=== PATIENT | female | born 1935 | race Hispanic/Latino ===

== ENCOUNTER 2017-03-26 10:45 | Observation (INO) | payer MEDICARE, BC ==
--- NOTE | 2017-03-26 11:04 | ED PDOC ---
Arrival/HPI - General Chief Complaint: Abnormal Labs Time Seen by Provider: 03/26/17 11:01 Historian: Patient - History of Present Illness Narrative History of Present Illness (Text): 03/26/17 11:02 An 81 year old female with known thalassemia with baseline hgb of approx 8.5. 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 Patient was referred to the Emergency department after was noted to have a hgb of 6.8. Patient is to be admitted to Dr. Booth for transfusion. Patient presents to the emergency department complaining of dizziness, generalized weakness and shortness of breath. Patient reports chronic black stools. No recent syncopal episodes. Patient is not taking iron. Patient notes some nausea but denies any abdominal pain, chest pain or any other complaints at this time. Patient is a smoker. PMD: Dr. Booth Public Relations Player: Dr. Nelson Time/Duration: Other (chronic) Symptom Onset: Sudden Symptom Course: Unchanged Activities at Onset: Rest Context: Home Past Medical History - Provider Review Nursing Documentation Reviewed: Yes - Infectious Disease Hx of Infectious Diseases: None - Reproductive Menopause: Yes - Hematological/Oncological Hx Anemia: Yes - Psychiatric Hx Substance Use: No - Anesthesia Hx Anesthesia Reactions: No Family/Social History - Physician Review Nursing Documentation Reviewed: Yes Family/Social History: No Known Family HX Smoking Status: Unknown If Ever Smoked Hx Alcohol Use: No Hx Substance Use: No Allergies/Home Meds Allergies/Adverse Reactions: Allergies No Known Allergies Allergy (Verified 03/26/17 11:00) Home Medications: Home Meds Medication Instructions Recorded Confirmed No Known Home Med 03/26/17 03/26/17 Review of Systems - Physician Review All systems were reviewed & negative as marked: Yes - Review of Systems Constitutional: Other (generalized weakness) Respiratory: SOB Cardiovascular: absent: Chest Pain Gastrointestinal: Stool Changes (black stools), Nausea. absent: Abdominal Pain Neurological: Dizziness Physical Exam Vital Signs Reviewed: Yes Vital Signs Temp Pulse Resp BP Pulse Ox 03/26/17 11:15 97.5 F L 86 18 190/81 H 98 03/26/17 10:54 97.5 F L 86 16 190/81 H 98 Temperature: Afebrile Blood Pressure: Hypertensive Pulse: Regular Respiratory Rate: Normal Appearance: Positive for: Well-Appearing, Non-Toxic, Comfortable Pain Distress: None Mental Status: Positive for: Alert and Oriented X 3 - Systems Exam Head: Present: Atraumatic, Normocephalic Pupils: Present: PERRL Extroacular Muscles: Present: EOMI Conjunctiva: Present: Other (pallor) Mouth: Present: Dry Neck: Present: Normal Range of Motion Respiratory/Chest: Present: Clear to Auscultation, Good Air Exchange. No: Respiratory Distress, Accessory Muscle Use Cardiovascular: Present: Regular Rate and Rhythm, Normal S1, S2, Other (not accelerated). No: Murmurs Abdomen: Present: Normal Bowel Sounds. No: Tenderness, Distention, Peritoneal Signs, Rebound, Guarding, Mass/Organomegaly Back: Present: Normal Inspection Upper Extremity: Present: Normal Inspection, Other (strong 2+ pulses). No: Cyanosis, Edema Lower Extremity: Present: Normal Inspection, Other (strong 2+ pulses). No: Edema, Cyanosis Neurological: Present: GCS=15, CN II-XII Intact, Speech Normal Skin: Present: Dry, Normal Color, Other (pale). No: Rashes Psychiatric: Present: Alert, Oriented x 3, Normal Insight, Normal Concentration Medical Decision Making ED Course and Treatment: 03/26/17 11:40 Impression: An 81 year old female with generalized weakness, shortness of breath and dizziness. Plan: -- EKG -- chest xray -- labs -- Urinalysis -- Reassess and disposition Progress Notes: EKG: Ordered, reviewed, and independently interpreted the EKG. Rate : 74 BPM Rhythm : NSR Interpretation : occasional PACs, poor R wave progression v1-v3, no acte ST/T wave changes Comparison : No previous EKG for comparison. 03/26/17 11:[address] Booth for the second time for patient admission. 03/26/17 12:[address] Booth, who agrees for patient to be admitted. 03/26/17 12:30 Chest xray: No active pulmonary disease, as read by me. Reevaluation: I have discussed the results and plan with the patient, who expresses understanding. Patient given the opportunity to ask question, all questions were answered and there is agreement with the plan to be admitted to the hospital. - Lab Interpretations Lab Results: 03/26/17 11:30 03/26/17 11:30 Lab Results 03/26/17 12:00: Blood Type Confirm A POSITIVE 03/26/17 11:30: Blood Type A POSITIVE, Antibody Screen Negative, Crossmatch See Detail, BBK History Checked No verified bt 03/26/17 11:30: Sodium 139, Potassium 4.7, Chloride 105, Carbon Dioxide 27, Anion Gap 12, BUN 14, Creatinine 0.5 L, Est GFR ( Amer) > 60, Est GFR ( Non-Af Amer) > 60, Random Glucose 93, Calcium 9.6, Total Bilirubin 1.1, AST 38 H , ALT 41, Alkaline Phosphatase 66, Total Protein 7.4, Albumin 4.2, Globulin 3.2 , Albumin/Globulin Ratio 1.3, Amylase 75, Lipase 151 03/26/17 11:30: Urine Color Yellow, Urine Appearance Clear, Urine pH 6.0, Ur Specific [place] 1.015, Urine Protein Trace H, Urine Glucose (UA) Negative, Urine Ketones Negative, Urine Blood Negative, Urine Nitrate Negative, Urine Bilirubin Negative, Urine Urobilinogen 0.2, Ur Leukocyte Esterase Trace H, Urine RBC 0 - 2, Urine WBC 0 - 2, Ur Epithelial Cells 0 - 2 03/26/17 11:30: PT 14.5 H, INR 1.31 H, APTT 32.2 03/26/17 11:30: WBC 3.7 L, RBC 4.51, Hgb 7.3 L, Hct 26.5 L, MCV 58.8 L, MCH 16.2 L, MCHC 27.5 L, RDW 24.5 H, Plt Count 174, Gran % 45.3 L, Lymph % (Auto) 45.8 H, [place] % (Auto) 6.8 H, Eos % (Auto) 1.6, Baso % (Auto) 0.5, Gran # 1.67, Lymph # 1.7, [place] # 0.3, Eos # 0.1, Baso # 0.02 I have reviewed the lab results: Yes - RAD Interpretation Radiology Orders: 03/26/17 11:18 CHEST PORTABLE [RAD] Stat - EKG Interpretation Interpreted by ED Physician: Yes Type: 12 lead EKG - Medication Orders Current Medication Orders: Albuterol/Ipratropium (Duoneb 3 Mg/0.5 Mg (3 Ml) Ud) 3 ml IH [id number] KRISTOFER Amlodipine Besylate (Norvasc) 10 mg PO DAILY [facility] Last Admin: 03/26/17 15:26 Dose: 10 mg MAR Blood Pressure Document 03/26/17 15:26 [facility] [place] (Rec: 03/26/17 15:27 [facility] [place] [id number]) Blood Pressure Blood Pressure (100/60-150/90) 177/88 Discontinued Medications Furosemide (Lasix) 20 mg IVP ONCE ONE Stop: 03/26/17 17:01 Last Admin: 03/26/17 17:05 Dose: 20 mg MAR Blood Pressure Document 03/26/17 17:05 [facility] [place] (Rec: 03/26/17 17:05 [facility] [place] [id number]) Blood Pressure Blood Pressure (100/60-150/90) 170/84 IVP Administration Document 03/26/17 17:05 [facility] [place] (Rec: 03/26/17 17:05 [facility] [place] [id number]) Charges for Administration # of IVP Administrations 1 Pneumococcal Polyvalent Vaccine (Pneumovax 23 Vaccine) 0.5 ml IM .ONCE ONE Stop: 03/26/17 13:53 - Scribe Statement Ronda Cruz Provider Scribe Attestation: All medical record entries made by the Scribe were at my direction and personally dictated by me. I have reviewed the chart and agree that the record accurately reflects my personal performance of the history, physical exam, medical decision making, and the department course for this patient. I have also personally directed, reviewed, and agree with the discharge instructions and disposition. Disposition/Present on Arrival - Present on Arrival Any Indicators Present on Arrival: No History of DVT/PE: No History of Uncontrolled Diabetes: No Urinary Catheter: No History of Decub. Ulcer: No History Surgical Site Infection Following: None - Disposition Have Diagnosis and Disposition been Completed?: Yes Diagnosis: Anemia, Thalassemia Disposition: HOSPITALIZED Disposition Time: 12:12 Patient Plan: Observation Patient Problems: Current Active Problems Problem Status Onset Anemia Acute Thalassemia Acute Condition: FAIR
[2017-03-26 11:40] LABS: BASO # 0.02 K/mm3 (0.0-2.0); BASO % 0.5 % (0.0-3.0); EOS # 0.1 (0.0-0.7); EOS % 1.6 % (1.5-5.0); GRAN # 1.67 (1.4-6.5); GRAN % 45.3 % (50.0-68.0); HEMATOCRIT 26.5 % (36.0-48.0); LYMPH # 1.7 (1.2-3.4); LYMPH % 45.8 % (22.0-35.0); MEAN CELL VOLUME 58.8 fl (80.0-105.0); MEAN CORPUSCULAR HEMOGLOBIN 16.2 pg (25.0-35.0); MEAN CORPUSCULAR HGB CONC 27.5 g/dl (31.0-37.0); MONO # 0.3 (0.1-0.6); MONO % 6.8 % (1.0-6.0); PLATELET COUNT 174 10^3/uL (120.0-450.0); RED CELL DISTRIBUTION WIDTH 24.5 % (11.5-14.5); WHITE BLOOD COUNT 3.7 10^3/ul (4.5-11.0)
[2017-03-26 11:51] LABS: ALB/GLOB RATIO 1.3 (1.1-1.8); ALKALINE PHOSPHATASE 66 U/L (38-126); ALT/SGPT 41 U/L (7-56); AMYLASE 75 U/L (35-125); AST/SGOT 38 U/L (14-36); BILIRUBIN,TOTAL 1.1 mg/dL (0.2-1.3); BLOOD UREA NITROGEN 14 mg/dL (7-21); CALCIUM 9.6 mg/dL (8.4-10.5); CARBON DIOXIDE 27 mmol/L (21-33); CHLORIDE 105 mmol/L (98-107); GFR AFRICAN-AMERICAN > 60; GLUCOSE,RANDOM 93 mg/dL (70-110); INR 1.31 (0.93-1.08); LIPASE 151 U/L (23-300); PARTIAL THROMBOPLASTIN TIME 32.2 Seconds (25.1-36.5); TOTAL PROTEIN 7.4 g/dL (5.8-8.3)
[2017-03-26 12:02] LABS: POTASSIUM 4.7 mmol/L (3.6-5.0); SODIUM 139 mmol/L (132-148)
[2017-03-26 12:11] LABS: URINE BILIRUBIN NEGATIVE (NEGATIVE); URINE BLOOD NEGATIVE (NEGATIVE); URINE GLUCOSE (UA) NEGATIVE (NEGATIVE); URINE KETONE NEGATIVE (NEGATIVE); URINE LEUKOCYTE ESTERASE TRACE Leu/uL (NEGATIVE); URINE PROTEIN TRACE mg/dL (<30 mg/dL); URINE UROBILINOGEN 0.2 E.U./dL (<1 E.U./dL)
[2017-03-26 12:13] LABS: URINE APPEARANCE CLEAR (CLEAR); URINE COLOR YELLOW (YELLOW)
[2017-03-26 12:29] LABS: URINE EPITHELIAL CELLS 0 - 2 /hpf (0-5); URINE RBC 0 - 2 /hpf (0-2); URINE WBC 0 - 2 /hpf (0-6)
[2017-03-26 13:52] VITALS: BMI 22.8
[2017-03-26] MEDS ORDERED: Influenza Vaccine 60 mcg/0.5 mL SYR (4YR UP) IM ONE (13:52)
[2017-03-26] MEDS ORDERED: Pneumococcal 23-Valent Vaccine IM ONE (13:52)
--- NOTE | 2017-03-26 14:11 | RAD ---
HISTORY: Shortness of breath. Portable study 11:18 COMPARISON: No prior. FINDINGS: LUNGS: No active pulmonary disease. PLEURA: No significant pleural effusion identified, no pneumothorax apparent. CARDIOVASCULAR: No radiographic findings to suggest acute or significant cardiovascular disease. OSSEOUS STRUCTURES: No significant abnormalities. VISUALIZED UPPER ABDOMEN: Normal. OTHER FINDINGS: None. IMPRESSION: No active disease.
[2017-03-26] MEDS ORDERED: Barium Sulfate Susp 2.1% w/v, 2.0% w/w 450 mL Bottle PO ONE (15:21)
[2017-03-26] MEDS ORDERED: Iohexol 240 (50 ml) ONE (16:33)
--- NOTE | 2017-03-26 23:05 | CARD ---
APPROVED REPORT EKG Measurement Heart [id number] <Conclusion> Sinus rhythm with premature atrial complexes Cannot rule out Anterior infarct, age undetermined Abnormal ECG
--- NOTE | 2017-03-26 23:49 | CP.PCM.CON ---
History of Present Illness - History of Present Illness History of Present Illness: Patient is an 81 year old female seen in office yesterday. CBC showed hemoglobin of 6.8 gm/dl. She usually has Hb around 8.5 gm/dl. She has beta thalasemmia trait. She recently had EGD, colonoscopy, both negative for any source of bleeding. She has symptomatic anemia. She has shortness of breath, fatigue, day time somnolence. She is unable to perform her day to day activities because of fatigue. No dark colored stools. No bleeding from any site. Review of Systems - Constitutional Constitutional: As Per HPI, Lethargy, Malaise, Weakness - EENT Eyes: absent: As Per HPI, Blind Spots, Blurred Vision, Change in Vision, Decreased Night Vision, Diplopia, Discharge, Dry Eye, Exophthalmos, Floaters, Irritation, Itchy Eyes, Loss of Peripheral Vision, Pain, Photophobia, Requires Corrective Lenses, Sees Flashes, Spots in Vision, Tunnel Vision, Other Visual Disturbances, Loss of Vision, Other Ears: absent: As Per HPI, Decreased Hearing, Ear Discharge, Ear Pain, Tinnitus, Abnormal Hearing, Disequilibrium, Dizziness, Other Nose/Mouth/Throat: absent: As Per HPI, Epistaxis, Nasal Congestion, Nasal Discharge, Nasal Obstruction, Nasal Trauma, Nose Pain, Post Nasal Drip, Sinus Pain, Sinus Pressure, Bleeding Gums, Change in Voice, Dental Pain, Dry Mouth, Dysphagia, Halitosis, Hoarsness, Lip Swelling, Mouth Lesions, Mouth Pain, Odynophagia, Sore Throat, Throat Swelling, Tongue Swelling, Facial Pain, Neck Pain, Neck Mass, Other - Breasts Breasts: absent: As Per HPI, Change in Shape, Mass, Pain, Nipple Discharge, Nipple Inversion, Skin Changes, Swelling, Other - Cardiovascular Cardiovascular: As Per HPI, Dyspnea - Gastrointestinal Gastrointestinal: absent: As Per HPI, Abdominal Pain, Belching, Bloating, Change in Bowel Habits, Change in Stool Character, Coffee Ground Emesis, Constipation, Cramping, Diarrhea, Dyspepsia, Dysphagia, Early Satiety, Excessive Flatus, Fecal Incontinence, Heartburn, Hematemesis, Hematochezia, Loose Stools, Melena, Nausea, Odynophagia, Temesmus, Vomiting, Other - Genitourinary Genitourinary: absent: As Per HPI, Change in Urinary Stream, Difficulty Urinating, Dysuria, Flank Pain, Hematuria, Pyuria, Nocturia, Urinary Incontinence, Urinary Frequency, Urinary Hesitance, Urinary Urgency, Voiding Freq/Small Amts, Freq UTI, Hx Renal/Bladder Calculi, Hx /Renal Surgery, Bladder Distension, Other - Musculoskeletal Musculoskeletal: absent: As Per HPI, Abnormal Gait, Arthralgias, Atrophy, Back Pain, Deformity, Joint Swelling, Limited Range of Motion, Loss of Height, Muscle Cramps, Muscle Weakness, Myalgias, Neck Pain, Numbness, Radiating Pain into Limb, Stiffness, Tingling, Other - Integumentary Integumentary: absent: As Per HPI, Acne, Alopecia, Bleeding Lesions, Change in Hair, Change in Nails, Change in Pigmentation, Changing Lesions, Dry Skin, Erythema, Furuncle, Hirsutism, Lesions, New Lesions, Non-Healing Lesions, Photosensitivity, Pruritus, Rash, Skin Pain, Skin Ulcer, Sores, Striae, Swelling , Unusual Bruising, Wounds, Jaundice, Other - Neurological Neurological: absent: As Per HPI, Abnormal Gait, Abnormal Hearing, Abnormal Movements, Abnormal Speech, Behavioral Changes, Burning Sensations, Confusion, Convulsions, Disequilibrium, Dizziness, Numbness, Focal Weakness, Frequent Falls , Headaches, Lack of Coordination, Loss of Vision, Memory Loss, Paresthesias, Radicular Pain, Restless Legs, Sensory Deficit, Syncope, Tingling, Tremor, Vertigo, Weakness, Other Visual Disturbances, Other - Psychiatric Psychiatric: absent: As Per HPI, Abnormal Sleep Pattern, Anhedonia, Anxiety, Auditory Hallucinations, Behavioral Changes, Change in Appetite, Change in Libido, Confusion, Depression, Difficulty Concentrating, Hallucinations, Homicidal Ideation, Hopelessness, Irritability, Memory Loss, Mood Swings, Panic Attacks, Paranoia, Suicidal Ideation, Visual Hallucinations, Tactile Hallucinations, Other - Endocrine Endocrine: absent: As Per HPI, Change in Body Appearance, Change in Libido, Cold Intolorance, Deepening of Voice, Excessive Sweating, Fatigue, Flushing, Heat Intolorance, Increase in Ring/Shoe/Hat Size, Palpitations, Polydipsia, Polyphagia, Polyuria, Other - Hematologic/Lymphatic Hematologic: As Per HPI Past Patient History - Infectious Disease Hx of Infectious Diseases: None - Past Medical History & Family History Past Medical History?: Yes Past Family History: Reviewed and not pertinent - Past Social History Smoking Status: Unknown If Ever Smoked - NEUROLOGICAL Hx Neurological Disorder: Yes (syncope) Hx Dizziness: Yes Hx Seizures: (pt denies) Other/Comment: multiple episodes of syncope last episode about 1 yr ago, Pt stated " sometimes I feel like I'm going to pass out but I sit down and it passes." - HEENT Hx HEENT Problems: Yes (eyeglasses) Hx Cataracts: Yes (b/l sx) Hx Macular Degeneration: Yes Other/Comment: 70% vision loss left eye and 5% vision loss right eye, from macular degeneration - HEMATOLOGICAL/ONCOLOGICAL Hx Anemia: Yes - MUSCULOSKELETAL/RHEUMATOLOGICAL Hx Falls: Yes (past) Other/Comment: pt fell backwards hanging curtains in 2013 around 10am and does not remember anything woke up at 1pm walked downstairs and called her neice. went to er all tests negative as per pt - GASTROINTESTINAL Hx Gastrointestinal Disorders: Yes Other/Comment: chronic black stools +guiac for abou 6 or 8 months - PSYCHIATRIC Hx Substance Use: No - SURGICAL HISTORY Hx Surgeries: Yes (b/l cataracts) - ANESTHESIA Hx Anesthesia Reactions: No Meds Allergies/Adverse Reactions: Allergies Allergy/AdvReac Type Severity Reaction Status Date / Time No Known Allergies Allergy Verified 03/26/17 11:00 - Medications Medications: Current Medications Albuterol/Ipratropium (Duoneb 3 Mg/0.5 Mg (3 Ml) Ud) 3 ml IH [id number] [facility] Amlodipine Besylate (Norvasc) 10 mg PO DAILY [facility] Last Admin: 03/26/17 15:26 Dose: 10 mg Physical Exam - Constitutional Appears: Well, Non-toxic - Head Exam Head Exam: ATRAUMATIC, NORMAL INSPECTION, NORMOCEPHALIC - Eye Exam Eye Exam: Normal appearance Pupil Exam: NORMAL ACCOMODATION - ENT Exam ENT Exam: Mucous Membranes Moist - Neck Exam Neck exam: Positive for: Normal Inspection - Respiratory Exam Respiratory Exam: Clear to Auscultation Bilateral, NORMAL BREATHING PATTERN - Cardiovascular Exam Cardiovascular Exam: REGULAR RHYTHM, +S1, +S2 - GI/Abdominal Exam GI & Abdominal Exam: Normal Bowel Sounds, Soft - Rectal Exam Rectal Exam: NORMAL INSPECTION - Extremities Exam Extremities exam: Positive for: normal inspection - Back Exam Back exam: NORMAL INSPECTION - Neurological Exam Neurological exam: CN II-XII Intact, Normal Gait, Oriented x3 - Skin Skin Exam: Pallor, Warm Results - Vital Signs Recent Vital Signs: Last Vital Signs Temp 98.4 F 03/26/17 20:15 Pulse 68 03/26/17 20:15 Resp 16 03/26/17 20:15 BP 155/83 H 03/26/17 20:15 Pulse Ox 95 03/26/17 16:00 - Labs Result Diagrams: 03/26/17 11:30 03/26/17 11:30 Assessment & Plan - Assessment and Plan (Free Text) Assessment: 1. Severe Anemia 2. Thalasemia trait 3. Fatigue 4. Leukopenia Plan: 2 units of PRBC. Lasix 20 mg IV after first unit. Recent GI work up negative- EGD, colonoscopy. CT chest, abdomen, pelvis with PO and IV contrast to rule out occult malignancy. Leukopenia is recent. She will need bone marrow aspiration, biopsy to rule out MDS. Discussed with the patient. She agreed with the plan. Bone marrow will be done in 1-2 weeks if WC does not recover. Thank you Dr. Booth for allowing us to participate in her care. - Date & Time Date: 03/26/17 Time: 17:00
--- NOTE | 2017-03-27 01:21 | HP ---
HISTORY OF PRESENT ILLNESS: The patient is an 81-year-old, known to me from office practice, was seen by Dr. Nelson because of her chronic anemia, although the patient has sickle cell anemia, but workup was done recently, almost a month ago in outside facility and she had endoscopy and colonoscopy done and both were negative. However, stool for Hemoccult was positive. Plan was to do capsule endoscopy as an outpatient, but upon examination, Dr. Nelson found her anemic, so she referred her to emergency room for blood transfusion because the patient was symptomatic. She was complaining of generalized weakness, fatigue, and sleepiness and she was getting short of breath. No history of fever or chills. No joselo rectal bleeding. No hematuria. PAST MEDICAL HISTORY: Significant for: 1. Hypertension. 2. COPD. She used to be on blood pressure medication, but she quit on her own. ALLERGIES: SHE IS NOT ALLERGIC TO ANY MEDICATION. MEDICATIONS AT HOME: She currently does not take any medications. PHYSICAL EXAMINATION: GENERAL: She is awake, alert, oriented, communicative, and not in any distress. VITAL SIGNS: She is afebrile, pulse 72, respirations 16, and blood pressure 168/82. LUNGS: Bilaterally diffuse decreased breath sounds. No active rhonchi or crackle. HEART: S1 and S2 audible. ABDOMEN: Soft and nontender. No rebound. No guarding. NEUROLOGICAL: She is awake, alert, oriented, and communicative. LABORATORY DATA: WBC is 3.7, hemoglobin is 7.3, hematocrit is 26.5, and platelets of 174. Chemistry; sodium 139, potassium 4.7, chloride 105, CO2 of 27, BUN 14, creatinine 0.5, and blood sugar of 93. Urinalysis is unremarkable. X-ray of the chest is negative. ASSESSMENT: 1. Symptomatic anemia. 2. Gastrointestinal bleed, etiology undetermined. 3. Chronic obstructive pulmonary disease. 4. Hypertension. PLAN: We will give her 2 blood transfusions, give her Norvasc 10 mg daily, and Dr. Nelson for consult. We will start her on nebulizer treatment. Discussed with son. I will order for CT scan of the abdomen and pelvis and GI consult with Dr. Christianson has been requested. Followup the patient's CBC and CMP in a.m. Guido Booth MD
[2017-03-27] MEDS: Albuterol-Ipratrop 3 mg / 0.5 (3 ml) UD IH SCH ×3 (02:55→13:48)
[2017-03-27 06:36] LABS: BASO # 0.02 K/mm3 (0.0-2.0); BASO % 0.6 % (0.0-3.0); EOS # 0.1 (0.0-0.7); EOS % 3.7 % (1.5-5.0); GRAN # 1.28 (1.4-6.5); GRAN % 39.5 % (50.0-68.0); HEMATOCRIT 31.8 % (36.0-48.0); LYMPH # 1.5 (1.2-3.4); LYMPH % 46.9 % (22.0-35.0); MEAN CELL VOLUME 62.8 fl (80.0-105.0); MEAN CORPUSCULAR HEMOGLOBIN 18.6 pg (25.0-35.0); MEAN CORPUSCULAR HGB CONC 29.6 g/dl (31.0-37.0); MONO # 0.3 (0.1-0.6); MONO % 9.3 % (1.0-6.0); PLATELET COUNT 117 10^3/uL (120.0-450.0); RED CELL DISTRIBUTION WIDTH 28.8 % (11.5-14.5); WHITE BLOOD COUNT 3.2 10^3/ul (4.5-11.0)
[2017-03-27 06:53] LABS: ALB/GLOB RATIO 1.3 (1.1-1.8); ALKALINE PHOSPHATASE 62 U/L (38-126); ALT/SGPT 32 U/L (7-56); AST/SGOT 34 U/L (14-36); BILIRUBIN,TOTAL 1.2 mg/dL (0.2-1.3); BLOOD UREA NITROGEN 14 mg/dL (7-21); CALCIUM 9.1 mg/dL (8.4-10.5); CARBON DIOXIDE 27 mmol/L (21-33); CHLORIDE 105 mmol/L (98-107); GFR AFRICAN-AMERICAN > 60; GLUCOSE,RANDOM 90 mg/dL (70-110); POTASSIUM 3.5 mmol/L (3.6-5.0); SODIUM 139 mmol/L (132-148); TOTAL PROTEIN 7.1 g/dL (5.8-8.3)
[2017-03-27 07:49] VITALS: RESP 20
[2017-03-27] MEDS ORDERED: Iohexol 350 MG/100 ML VIAL ONE (10:45)
--- NOTE | 2017-03-27 13:06 | CT ---
PROCEDURE: CT Chest, Abdomen and Pelvis with intravenous contrast HISTORY: severe anemia COMPARISON: None. TECHNIQUE: IV dose administered: 100 mL Omnipaque 350 Radiation dose: Total exam DLP = 425.43 mGy-cm. This CT exam was performed using one or more of the following dose reduction techniques: Automated exposure control, adjustment of the mA and/or kV according to patient size, and/or use of iterative reconstruction technique. FINDINGS: CT CHEST WITH CONTRAST: LUNGS: Subsegmental atelectasis in the left lower lobe. No infiltrate. 3 mm right upper lobe nodule on series 4, image 47. 4 mm right middle lobe nodule abutting the minor fissure. 8 mm subpleural nodule in left lower lobe on series 4, image 89. Recommend followup noncontrast chest CT examination in 6-12 months as per Fleischner society criteria. MEDIASTINUM: Unremarkable. Normal caliber aorta and pulmonary arterial trunk. No aortic dissection. Normal size heart. LYMPH NODES: Unremarkable. PLEURA: Unremarkable. No pneumothorax. No pleural fluid. BONES: Unremarkable. OTHER FINDINGS: None. CT ABDOMEN AND PELVIS: LIVER: Mild hepatomegaly. The liver measures 20.3 cm craniocaudal. No mass. No biliary dilatation. Smooth contour. GALLBLADDER AND BILE DUCTS: Unremarkable. PANCREAS: Unremarkable. No gross lesion or ductal dilatation. SPLEEN: Unremarkable. ADRENALS: Right adrenal mass, 2.0 cm. Likely adrenal adenoma. KIDNEYS AND URETERS: Unremarkable. No hydronephrosis. No solid mass. VASCULATURE: No evidence of abdominal aortic aneurysm. 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 BOWEL: Unremarkable. No obstruction. No gross mural thickening. APPENDIX: Not definitely identified. PERITONEUM: No ascites. No pneumoperitoneum. Please note that there is an infiltrating ill-defined process within the small bowel mesenteric measuring approximately 2.2 x 5.7 cm. This is nonspecific and may be seen with mesenteric panniculitis as well as lymphoma or carcinoid. . Followup is advised. No retroperitoneal or pelvic lymphadenopathy. LYMPH NODES: No retroperitoneal or pelvic lymphadenopathy. BLADDER: Unremarkable. REPRODUCTIVE: Unremarkable uterus. BONES: No acute fracture. OTHER FINDINGS: None. IMPRESSION: Several pulmonary nodules, the largest of which measures 8 mm, in the left lower lobe. Followup noncontrast chest CT is advised 6-12 months. Nonspecific infiltrating process in the small bowel mesenteric. Differential diagnosis includes mesenteric panniculitis, lymphoma or carcinoid tumor. . Followup is advised. No retroperitoneal or pelvic lymphadenopathy. No mediastinal lymphadenopathy. Incidental 2 cm right adrenal nodule. Statistically most likely adrenal adenoma.
--- NOTE | 2017-03-27 14:38 | DS ---
HISTORY OF PRESENT ILLNESS: The patient is 81 years old, seen and examined, lying in bed, seems to be comfortable. No weakness. No numbness. No dizziness. PHYSICAL EXAMINATION: VITAL SIGNS: She is afebrile. Pulse 69, respirations 20 and blood pressure 140/87. LUNGS: Bilateral fair airflow. No rhonchi or crackles. HEART: S1 and S2 audible. ABDOMEN: Soft and nontender. No rebound. No guarding. NEUROLOGIC: She is awake, alert, oriented and communicative. LABORATORY DATA: WBC 3.2, hemoglobin 9.4, hematocrit 31.8 and platelets 117. She came in with hemoglobin of 7.3. She has two blood transfusions done. Chemistry; sodium 139, potassium 3.5, chloride 105, CO2 27, BUN 14, creatinine 0.6 and blood sugar of 90. ASSESSMENT AND PLAN: 1. Symptomatic anemia, multifactorial. She has thalassemia trait. She has recently endoscopic colonoscopy done that was negative, but stool for Hemoccult in GI office was positive. The plan was to have capsule endoscopy done as outpatient. 2. Hypertension. 3. Hyperlipidemia. We will follow CT scan of the chest, abdomen and pelvis. If that is unremarkable, she can be discharged today. Later on, she will follow with GI. If capsule endoscopy is negative, we might have to do bone marrow. We will follow up with this patient as outpatient. Guido Booth MD
[2017-03-27 16:04] VITALS: BP 147/76; PULSE 75; TEMP 97.9; O2SAT 96
--- NOTE | 2017-03-27 20:51 | PN ---
DATE: 03/27/2017 SUBJECTIVE: This patient was seen and evaluated earlier today. The patient is comfortable and tolerating the diet. PHYSICAL EXAMINATION: VITAL SIGNS: Temperature is 97.9, pulse is 75, blood pressure is 147/76, respirations are 20, and O2 saturation is 96%. HEENT: Atraumatic. Anicteric. NECK: Supple. HEART: S1 and S2 heard. LUNGS: Bilateral air entry present. ABDOMEN: Soft. There is no tenderness. EXTREMITIES: No edema. No cyanosis. NEUROLOGIC: Alert and oriented. Moves all extremities. LABORATORY DATA: Hemoglobin 9.4, hematocrit 31.8, WBC 3.2, and platelets 117. Potassium 3.7. IMPRESSION AND PLAN: This 81-year-old patient with history of thalassemia, admitted with drop in blood count, severe anemia, hemoglobin 7.3, status post 2 units of transfusion. The patient did have recent gastrointestinal workup done, which was negative, but as per the patient and family, the patient had a CT scan of the abdomen and pelvis, which was reviewed and it showed possible intraabdominal lesion suggestive of infiltrating process in the small bowel area. The patient also has multiple lung nodules. Rule out lymphoma in this patient or small bowel lesion or the metastatic lesion could be considered. Would request LDH and also oncological followup. The patient may benefit from MR enterography. Thank you very much for allowing us to participate in the care of the patient. Janny Christianson MD
--- NOTE | 2017-03-29 09:29 | CON ---
DATE: 03/27/2017 HISTORY OF PRESENT ILLNESS: This patient is an 81-year-old patient with a history of thalassemia, history of anemia, recently also found to be stool for occult blood positive, was found to have drop in hemoglobin to 7.8 on routine examination and evaluation and sent by the duct layer supervisor to the ER. The patient denies any bleeding per rectum. No vomiting and abdominal pain. The patient had recently seen the cord tire builder, had an endoscopy and the colonoscopy done, both were negative as per the patient's son who was at bedside. PAST MEDICAL HISTORY: Significant as above. ALLERGIES: NO KNOWN DRUG ALLERGIES. SOCIAL HISTORY: Denies smoking, alcohol. REVIEW OF SYSTEMS: Positive as above. Other systems reviewed negative. PHYSICAL EXAMINATION: GENERAL: The patient is lying on the bed, not in acute distress. VITAL SIGNS: Temperature 97.5, pulse 86, respirations 18 and blood pressure 155/83. HEENT: Atraumatic. Anicteric. NECK: Supple. HEART: S1 and S2 heard. LUNGS: Bilateral air entry present. ABDOMEN: Soft. There is no tenderness. EXTREMITIES: No edema. No cyanosis. NEUROLOGIC: Alert and oriented. Moves all extremities. LABORATORY DATA: Hemoglobin 7.3, hematocrit 26.5, WBC 3.7 and platelet 174. MCV 58.8. Chemistry is essentially unremarkable except AST is 38. IMPRESSION: This 81-year-old patient with a history of thalassemia, found to have drop in blood count. Stool for occult blood positive. Recent esophagogastroduodenoscopy and colonoscopy are negative. The patient is receiving blood transfusion. Would consider CT of abdomen and pelvis with p.o. and IV contrast to further evaluate. The patient may benefit capsule endoscopy as an outpatient if the CT is negative. Urinalysis showed a trace leukocyte esterase, otherwise unremarkable. No hematuria. Thank you very much for allowing us to participate in the care of the patient. We will continue to closely follow up her care and suggest further management based on the clinical course. Janny Christianson MD
== END 2017-03-27 18:10 | disposition home or self-care (01) ==
LOC: ED 10:45 → ERH 12:07 → 5RNO 12:37
PROVIDERS: ADMIT Internal Medicine; ATTEND Internal Medicine
DX: D64.9 Anemia, unspecified (principal); D56.3 Thalassemia minor; D57.1 Sickle-cell disease without crisis; D72.819 Decreased white blood cell count, unspecified; E78.5 Hyperlipidemia, unspecified; F17.200 Nicotine dependence, unspecified, uncomplicated; H35.30 Unspecified macular degeneration; I10 Essential (primary) hypertension; J44.9 Chronic obstructive pulmonary disease, unspecified; K92.2 Gastrointestinal hemorrhage, unspecified; R40.2412 Glasgow coma scale score 13-15, at arrival to emergency department; H26.9 Unspecified cataract
CPT/HCPCS: 36415; 36430; 71010; 71260; 74177; 80053; 81001; 82150; 83690; 85025; 85610; 85730; 86850; 86900; 86920; 87086; 93005; 94640; 94760; 99282; G0378; J1940; J3480; P9016; Q9967

== ENCOUNTER 2017-05-12 12:38 | Inpatient (IN) | payer MEDICARE, BC ==
[2017-05-12 12:38] VITALS: BMI 22.8
[2017-05-12] MEDS ORDERED: Sodium Chloride 0.9% 1,000 ML IV SCH ×2 (13:15→20:18)
[2017-05-12] MEDS ORDERED: Iohexol 240 (50 ml) ONE (13:15)
[2017-05-12 13:36] LABS: BASO # 0.04 K/mm3 (0.0-2.0); BASO % 0.8 % (0.0-3.0); EOS # 0.1 (0.0-0.7); EOS % 1.2 % (1.5-5.0); GRAN # 3.07 (1.4-6.5); GRAN % 60.4 % (50.0-68.0); LYMPH # 1.6 (1.2-3.4); LYMPH % 32.1 % (22.0-35.0); MEAN CELL VOLUME 62.8 fl (80.0-105.0); MEAN CORPUSCULAR HEMOGLOBIN 17.3 pg (25.0-35.0); MEAN CORPUSCULAR HGB CONC 27.5 g/dl (31.0-37.0); MONO # 0.3 (0.1-0.6); MONO % 5.5 % (1.0-6.0); PLATELET COUNT 101 10^3/uL (120.0-450.0); RBC 4.52 10^6/uL (3.5-6.1); RED CELL DISTRIBUTION WIDTH 28.1 % (11.5-14.5); WHITE BLOOD COUNT 5.1 10^3/ul (4.5-11.0)
[2017-05-12 13:47] LABS: ALB/GLOB RATIO 1.3 (1.1-1.8); ALBUMIN 4.3 g/dL (3.0-4.8); ALT/SGPT 24 U/L (7-56); AMYLASE 68 U/L (35-125); AST/SGOT 37 U/L (14-36); BLOOD UREA NITROGEN 17 mg/dL (7-21); CALCIUM 9.1 mg/dL (8.4-10.5); GFR AFRICAN-AMERICAN > 60; GFR NON-AFRICAN AMERICAN > 60; LIPASE 129 U/L (23-300)
[2017-05-12 13:57] LABS: HEMOGLOBIN 7.8 g/dL (12.0-16.0)
[2017-05-12 13:58] LABS: INR 1.26 (0.93-1.08); PARTIAL THROMBOPLASTIN TIME 30.2 Seconds (25.1-36.5); PROTHROMBIN TIME 14.4 SECONDS (9.4-12.5)
[2017-05-12 14:19] LABS: BAND 3 % (0-2); NEUTROPHIL 45 % (50.0-70.0)
[2017-05-12 14:20] LABS: ANISOCYTOSIS 2+; CORRECTED WBC 4.4 K/mm3 (4.5-11.0); EOSINOPHIL 4 % (0.0-3.0); HYPOCHROMIA 3+; LYMPHOCYTE 40 % (22.0-35.0); METAMYELOCYTE 5 %; MICROCYTOSIS 2+; MONOCYTE 2 % (1.0-6.0); NUCLEATED RED BLOOD CELL 15 %; PLATELET ESTIMATE LOW (NORMAL); POIKILOCYTOSIS 1+; TARGET CELLS 1+; TEAR DROP CELLS SLIGHT
[2017-05-12 14:21] LABS: OVALOCYTES SLIGHT
--- NOTE | 2017-05-12 14:47 | ED PDOC ---
Arrival/HPI - General Chief Complaint: GI Problem Time Seen by Provider: 05/12/17 13:04 Historian: Patient - History of Present Illness Narrative History of Present Illness (Text): 05/12/17 13:10 Fiorella Martínez is an 81 year old female who presents to the emergency department sent in by Dr. Nelson complaining of persistent chest pain, vomiting, and non-bloody diarrhea over the past week. Patient states that her symptoms increases when she eats. Patient denies any fever, dysuria, hematuria, or any other complaints at this time. Time/Duration: 1 week Symptom Onset: Gradual Symptom Course: Unchanged Severity Level: Mild Activities at Onset: Light Context: Home Past Medical History - Provider Review Nursing Documentation Reviewed: Yes - Infectious Disease Hx of Infectious Diseases: None - Cardiac Hx Hypertension: Yes (No on medications currently) - Neurological Hx Neurological Disorder: Yes (syncope) Hx Dizziness: Yes Hx Seizures: (pt denies) Other/Comment: multiple episodes of syncope last episode about 1 yr ago, Pt stated " sometimes I feel like I'm going to pass out but I sit down and it passes." - HEENT Hx HEENT Disorder: Yes (eyeglasses) Hx Cataracts: Yes (b/l sx) Hx Macular Degeneration: Yes Other/Comment: 70% vision loss left eye and 5% vision loss right eye, from macular degeneration - Hematological/Oncological Hx Anemia: Yes - Musculoskeletal/Rheumatological Hx Falls: Yes (past) Other/Comment: pt fell backwards hanging curtains in 2013 around 10am and does not remember anything woke up at 1pm walked downstairs and called her neice. went to er all tests negative as per pt - Gastrointestinal Hx Gastrointestinal Disorders: Yes Other/Comment: chronic black stools +guiac for abou 6 or 8 months - Psychiatric Hx Substance Use: No - Anesthesia Hx Anesthesia Reactions: No Family/Social History - Physician Review Nursing Documentation Reviewed: Yes Family/Social History: No Known Family HX Smoking Status: Unknown If Ever Smoked Hx Alcohol Use: No Hx Substance Use: No Allergies/Home Meds Allergies/Adverse Reactions: Allergies No Known Allergies Allergy (Verified 05/12/17 12:50) Home Medications: Home Meds Medication Instructions Recorded Confirmed No Known Home Med 03/26/17 05/12/17 Review of Systems - Physician Review All systems were reviewed & negative as marked: Yes - Review of Systems Constitutional: absent: Fevers, Night Sweats Eyes: absent: Vision Changes ENT: absent: Hearing Changes Respiratory: absent: SOB, Cough Cardiovascular: Chest Pain Gastrointestinal: Diarrhea, Vomiting. absent: Abdominal Pain Genitourinary Female: absent: Dysuria, Frequency Musculoskeletal: absent: Arthralgias Skin: absent: Rash, Pruritis Neurological: absent: Headache, Dizziness Endocrine: absent: Diaphoresis Hemo/Lymphatic: absent: Adenopathy Psychiatric: absent: Anxiety, Depression Physical Exam Vital Signs Reviewed: Yes Vital Signs Temp Pulse Resp BP Pulse Ox 05/12/17 16:39 98.4 F 76 18 170/83 H 96 05/12/17 15:39 78 18 168/75 H 97 05/12/17 14:14 81 18 182/89 H 97 05/12/17 12:42 98 F 85 18 192/83 H 100 Temperature: Afebrile Blood Pressure: Hypertensive Pulse: Regular Respiratory Rate: Normal Appearance: Positive for: Well-Appearing, Non-Toxic, Comfortable Pain Distress: None Mental Status: Positive for: Alert and Oriented X 3 - Systems Exam Head: Present: Atraumatic, Normocephalic Pupils: Present: PERRL Extroacular Muscles: Present: EOMI Conjunctiva: Present: Normal Mouth: Present: Moist Mucous Membranes Nose (Internal): Present: Normal Inspection, No Active Bleeding, Moist, Engorged , Edematous, Boggy, Clear Mucous, Rhinorrhea, Purulent Mucous, Septal Deviation , Septal Hematoma, Epistaxis, Other Neck: Present: Normal Range of Motion Respiratory/Chest: Present: Clear to Auscultation, Good Air Exchange. No: Respiratory Distress, Accessory Muscle Use Cardiovascular: Present: Regular Rate and Rhythm, Normal S1, S2. No: Murmurs Abdomen: Present: Normal Bowel Sounds. No: Tenderness, Distention, Peritoneal Signs Back: Present: Normal Inspection Upper Extremity: Present: Normal Inspection. No: Cyanosis, Edema Lower Extremity: Present: Normal Inspection. No: Edema Neurological: Present: GCS=15, CN II-XII Intact, Speech Normal Skin: Present: Warm, Dry, Normal Color. No: Rashes Psychiatric: Present: Alert, Oriented x 3, Normal Insight, Normal Concentration Medical Decision Making ED Course and Treatment: 05/12/17 14:54 Impression: 81 year old female complaining of persistent chest pain, vomiting, and diarrhea over the past week. Plan: -- Chest, Abdomen, and Pelvis CT w/ contrast -- Urinalysis and Urine Culture -- Type and Screen -- Labs -- IV fluids -- Reassess and disposition Prior Visits: Notes and results from previous visits were reviewed. Patient was last seen in the emergency department on 03/26/17 for referred to the Emergency department after was noted to have a hgb of 6.8. Patient was admitted to hospitalist care for further evaluation. Progress Notes: - Lab Interpretations Lab Results: 05/12/17 13:24 05/12/17 13:24 Lab Results 05/12/17 15:23: Blood Type A POSITIVE, Antibody Screen Negative, Crossmatch See Detail, BBK History Checked Patient has bt 05/12/17 13:24: Sodium 140, Potassium 4.5, Chloride 106, Carbon Dioxide 25, Anion Gap 14, BUN 17, Creatinine 0.7, Est GFR ( Amer) > 60, Est GFR (Non- Af Amer) > 60, Random Glucose 91, Calcium 9.1, Total Bilirubin 1.2, AST 37 H, ALT 24, Alkaline Phosphatase 66, Total Protein 7.6, Albumin 4.3, Globulin 3.3, Albumin/Globulin Ratio 1.3, Amylase 68, Lipase 129 05/12/17 13:24: PT 14.4 H, INR 1.26 H, APTT 30.2 05/12/17 13:24: WBC 5.1 D, RBC 4.52, Hgb 7.8 L, Hct 28.4 L, MCV 62.8 L, MCH 17.3 L, MCHC 27.5 L, RDW 28.1 H, Plt Count 101 L, Gran % 60.4, Lymph % (Auto) 32.1, Jenkins % (Auto) 5.5, Eos % (Auto) 1.2 L, Baso % (Auto) 0.8, Gran # 3.07, Lymph # 1.6, Jenkins # 0.3, Eos # 0.1, Baso # 0.04, Corrected WBC (Man) 4.4 L, Neutrophils % (Manual) 45 L, Band Neutrophils % 3 H, Lymphocytes % (Manual) 40 H , Monocytes % (Manual) 2, Eosinophils % (Manual) 4 H, Metamyelocytes % 5, Nucleated RBC % 15, Platelet Evaluation Low, Hypochromasia 3+, Poikilocytosis ( manual 1+, Anisocytosis (manual) 2+, Microcytosis (manual) 2+, Target Cells 1+, Tear Drop Cells Slight, Ovalocytes Slight I have reviewed the lab results: Yes - RAD Interpretation Radiology Orders: 05/12/17 13:08 CHEST,ABD,PEL W/IV&PO CONTRAST [CT] Stat - Medication Orders Current Medication Orders: Sodium Chloride (Sodium Chloride 0.9%) 1,000 mls @ 100 mls/hr IV .Q10H KRISTOFER Last Admin: 05/12/17 13:30 Dose: 100 mls/hr eMAR Start Stop Document 05/12/17 13:30 OCS (Rec: 05/12/17 14:23 OCS [facility]) Intravenous Solution Start Date 05/12/17 Start Time 14:23 - Scribe Statement The provider has reviewed the documentation as recorded by the Yueibdav Tejada Provider Scribe Attestation: All medical record entries made by the Scribe were at my direction and personally dictated by me. I have reviewed the chart and agree that the record accurately reflects my personal performance of the history, physical exam, medical decision making, and the department course for this patient. I have also personally directed, reviewed, and agree with the discharge instructions and disposition. Disposition/Present on Arrival - Present on Arrival Any Indicators Present on Arrival: No History of DVT/PE: No History of Uncontrolled Diabetes: No Urinary Catheter: No History of Decub. Ulcer: No History Surgical Site Infection Following: None - Disposition Have Diagnosis and Disposition been Completed?: Yes Diagnosis: Abdominal pain, Anemia Disposition: HOSPITALIZED Disposition Time: 17:00 Condition: FAIR
[2017-05-12] MEDS ORDERED: Iohexol 350 MG/100 ML VIAL ONE (16:00)
--- NOTE | 2017-05-12 16:46 | CT ---
PROCEDURE: CT Chest, Abdomen and Pelvis with intravenous contrast HISTORY: abdominal pain - h/o mesenteric mass noted COMPARISON: Chest and pelvis CT with contrast 03/27/2017. TECHNIQUE: IV dose administered: Omnipaque 350, 92 cc. Radiation dose: Total exam DLP = 438.23 mGy-cm. This CT exam was performed using one or more of the following dose reduction techniques: Automated exposure control, adjustment of the mA and/or kV according to patient size, and/or use of iterative reconstruction technique. FINDINGS: CT CHEST WITH CONTRAST: LUNGS: No definite significant airspace disease appreciated bilaterally. Trace biapical fibrosis again evident. No pneumothorax or central airway mass. Following pulmonary nodules of an identified: Image 69 series 4, 3 mm right upper lobe nodule, stable. Image 99 series 4, 6 mm left lower lobe subpleural nodule, stable. Follow-up chest is advised in 12 months demonstrate stability these findings. No interval nodule is appreciated bilaterally. MEDIASTINUM: Unremarkable. Normal caliber aorta and pulmonary arterial trunk. No aortic dissection. Upper and limits normal sized heart with prominent coronary artery calcifications again appreciated. LYMPH NODES: Unremarkable. PLEURA: Unremarkable. No pneumothorax. No pleural fluid. BONES: Unremarkable. OTHER FINDINGS: None. CT ABDOMEN AND PELVIS: LIVER: Unremarkable. No gross lesion or ductal dilatation. GALLBLADDER AND BILE DUCTS: Unremarkable. PANCREAS: Unremarkable. No gross lesion or ductal dilatation. SPLEEN: Unremarkable. ADRENALS: 1.9 cm right adrenal nodule measures over 60 Hounsfield units. Although it has not changed in size compared over 10/23/[address], follow-up MRI is advised without contrast but using chemical shift is advised to exclude potential malignancy. Adrenal glands unremarkable once again. KIDNEYS AND URETERS: Unremarkable. No hydronephrosis. No solid mass. VASCULATURE: Unremarkable. No aortic aneurysm. BOWEL: Unremarkable. No obstruction. No gross mural thickening. APPENDIX: Normal appendix. PERITONEUM: Partially well-circumscribed ground-glass opacity is again seen at the inferior central med bowel mesenteric measuring 4.8 x 2.2 cm, potentially slightly smaller in the interval. Differential diagnosis is unchanged and consideration of mesenteric panniculitis, lymphoma or carcinoid remains. LYMPH NODES: Unremarkable. No enlarged lymph nodes. BLADDER: Unremarkable. REPRODUCTIVE: Unremarkable. BONES: No acute fracture. OTHER FINDINGS: None. IMPRESSION: Stable if not slightly smaller ground-glass opacity at the inferior central bowel mesentery suspicious for potential mesenteric panniculitis, lymphoma or carcinoid. Continued clinical and CT follow-up are advised. No acute abdominal or chest findings by standard CT criteria. Right adrenal nodule appears increased in density with the metastatic nodule not excluded. Follow-up MRI with chemical shift advised. Infrequent stable bilateral sub cm pulmonary nodules are identified with follow-up chest CT advised in 12 months demonstrate stability of this finding. Lung Rads 2
[2017-05-12] MEDS ORDERED: Pneumococcal 23-Valent Vaccine IM ONE (21:58)
[2017-05-12] MEDS ORDERED: Influenza Vaccine 60 mcg/0.5 mL SYR (4YR UP) IM ONE (21:58)
--- NOTE | 2017-05-12 23:16 | CP.PCM.CON ---
<Anahi Crenshaw - Last Filed: 05/12/17 23:26> History of Present Illness - History of Present Illness History of Present Illness: GENERAL SURGERY CONSULT NOTE FOR DR. GRAY 81yo [place]ian F with PMHx of HTN, Beta Thalassemia trait, chronic anemia, COPD presents to the ED as sent by Dr. Nelson for chest pain, abdominal pain, vomiting and diarrhea. She states that for the past week, she has had 3 "attacks " which involve abdominal pain in the bilateral lower abdomen, bilateral chest piain radiating to the back. She notes these attacks occurred after eating solid food/meat. After the pain, she has diarrhea and vomiting about 3x and then the pain resolves. Currently, she denies any abdominal pain. Last BM was Wednesday and was normal. Last flatus was this AM. She has weight fluctuation with a decrease from 120 to 116 and then goes back up again. She had endoscopy and colonoscopy about 2 months ago which were normal per the patient. However, stool occult was positive. There was a plan to do capsule endoscopy as an outpatient but due to anemia she was referred to the ED. She was admitted on 03/26/17 for symptomatic anemia where she received blood transfusion. CT on 03/27/17 showed several pulmonary nodules, infiltrating process in small bowel mesentery DDx: mesenteric panniculitis, lymphoma or carcinoid tumor. No lymphadenopathy. Right adrenal nodule. On 04/27/17, she had a PET/CT which showed no evidence of FDG avid mass or lymphadenopathy and hypodensity masslike lesion at midline lower abdomen is noted without evidence of increased FDG uptake. PMHx: HTN, Beta Thalassemia trait, chronic anemia, macular degeneration, COPD Surgeries: open appendectomy Allergies: none Social history: smokes 3-10 cigarettes per day, denies etoh, denies illicit drug use Review of Systems - Review of Systems All systems: reviewed and no additional remarkable complaints except (as per hpi ) Past Patient History - Infectious Disease Hx of Infectious Diseases: None - Past Medical History & Family History Past Medical History?: Yes - Past Social History Smoking Status: Light Smoker < 10 Cigarettes Daily - CARDIAC Hx Hypertension: Yes (No on medications currently) - NEUROLOGICAL Hx Neurological Disorder: Yes (syncope) Hx Dizziness: Yes Hx Seizures: (pt denies) Other/Comment: multiple episodes of syncope last episode about 1 yr ago, Pt stated " sometimes I feel like I'm going to pass out but I sit down and it passes." - HEENT Hx HEENT Problems: Yes (eyeglasses) Hx Cataracts: Yes (b/l sx) Hx Macular Degeneration: Yes Other/Comment: 70% vision loss left eye and 5% vision loss right eye, from macular degeneration - HEMATOLOGICAL/ONCOLOGICAL Hx Blood Disorders: Yes (thallasemia/genetic dx 5/6 yrs ago) Hx Anemia: Yes - MUSCULOSKELETAL/RHEUMATOLOGICAL Hx Falls: Yes (past) Hx Unsteady Gait: Yes Other/Comment: pt fell backwards hanging curtains in 2013 around 10am and does not remember anything woke up at 1pm walked downstairs and called her neice. went to er all tests negative as per pt - GASTROINTESTINAL Hx Gastrointestinal Disorders: Yes (gi bleed) Other/Comment: chronic black stools +guiac for abou 6 or 8 months - PSYCHIATRIC Hx Substance Use: No - SURGICAL HISTORY Hx Surgeries: Yes (b/l cataracts) - ANESTHESIA Hx Anesthesia Reactions: No Meds Allergies/Adverse Reactions: Allergies Allergy/AdvReac Type Severity Reaction Status Date / Time No Known Allergies Allergy Verified 05/12/17 12:50 - Medications Medications: Current Medications Amlodipine Besylate (Norvasc) 10 mg PO DAILY KRISTOFER Sodium Chloride (Sodium Chloride 0.9%) 1,000 mls @ 50 mls/hr IV .Q20H KRISTOFER Levalbuterol HCl (Xopenex) 1.25 mg IH [id number] KRISTOFER Pantoprazole Sodium (Protonix Ec Tab) 40 mg PO 0630 KRISTOFER Physical Exam - Constitutional Appears: Well, Non-toxic, No Acute Distress - Head Exam Head Exam: ATRAUMATIC, NORMAL INSPECTION - Eye Exam Eye Exam: EOMI, Normal appearance - Respiratory Exam Respiratory Exam: NORMAL BREATHING PATTERN. absent: Respiratory Distress - Cardiovascular Exam Cardiovascular Exam: +S1, +S2 - GI/Abdominal Exam GI & Abdominal Exam: Soft. absent: Distended, Firm, Guarding, Rebound, Rigid, Tenderness Additional comments: well healed open appendectomy scar - Extremities Exam Extremities exam: Positive for: normal inspection. Negative for: calf tenderness - Neurological Exam Neurological exam: Alert, CN II-XII Intact, Oriented x3 - Psychiatric Exam Psychiatric exam: Normal Affect, Normal Mood - Skin Skin Exam: Dry, Normal Color, Warm Results - Vital Signs Recent Vital Signs: Last Vital Signs Temp 98.4 F 05/12/17 21:32 Pulse 76 05/12/17 21:32 Resp 18 05/12/17 21:32 BP 170/83 H 05/12/17 21:32 Pulse Ox 96 05/12/17 16:39 - Labs Result Diagrams: 05/12/17 13:24 05/12/17 13:24 Assessment & Plan - Assessment and Plan (Free Text) Assessment: 81yo F with PMHx of HTN, Beta Thalassemia trait, chronic anemia, COPD presents to the ED as sent by Dr. Nelson for chest pain, abdominal pain, vomiting and diarrhea - Afebrile, VSS - Anemia Hgb 7.8 - CT: stable if not slightly smaller ground-glass opacity at inferior central bowel mesentery - suspicious for potential mesenteric panniculitisis, lymphoma or carcinoid; right adrenal nodule; bilateral pulmonary nodules - Possible laparoscopic biopsy tomorrow - NPO past midnight - Discussed plan with Dr. Isaac Crenshaw PGY-3 <Delta Gray - Last Filed: 05/17/17 00:09> Results - Vital Signs Recent Vital Signs: Last Vital Signs Temp 98.5 F 05/14/17 16:00 Pulse 78 05/14/17 16:00 Resp 18 05/14/17 16:00 BP 128/69 05/14/17 16:00 Pulse Ox 96 05/14/17 16:00 - Labs Result Diagrams: 05/14/17 06:50 05/14/17 06:50 Assessment & Plan - Assessment and Plan (Free Text) Assessment: Patient was seen and examined by me. I agree with assessment and plan as per resident's note.
[2017-05-12] MEDS ORDERED: Morphine 2 mg/ml ISec IVP PRN (23:24)
--- NOTE | 2017-05-13 04:05 | HP ---
HISTORY OF PRESENT ILLNESS: The patient is an 81 years old, known to me from office practice, who was sent by Dr. Nelson when the patient went to see her for her mesenteric mass. According to the patient, she is having epigastric to midsternal chest pain, going towards her belly and going towards her shoulder. Patient states it gets worse by eating, does complain of generalized weakness, and complain of getting short of breath very easily. Denies any nausea or vomiting, but does complain of decreased appetite and feeling of fullness. PAST MEDICAL HISTORY: Significant for, 1. Thalassemia. 2. History of COPD. 3. Hypertension. ALLERGIES: SHE IS NOT ALLERGIC TO ANY MEDICATIONS. MEDICATIONS AT HOME: She is not on any steady medication at home. SOCIAL HISTORY: She lives with her son, actively smokes, but recently did not smoke because of feeling sick. PHYSICAL EXAMINATION: GENERAL: Looks pale, awake, alert, oriented, and communicative. VITAL SIGNS: She is afebrile, pulse 76, respirations 18, blood pressure 170/83. LUNGS: Bilaterally diffusely decreased breath sound. HEART: S1 and S2 audible. ABDOMEN: Soft, nontender, no rebound, no guarding. NEUROLOGICALLY: She is awake, alert, oriented, able to communicate. LABORATORY DATA: WBC 5.1, hemoglobin 7.8, hematocrit 28.4, platelet of 101. PT 14.4, INR 1.26. Chemistry: Sodium 140, potassium 4.5, chloride 106, CO2 of 25, BUN 17, creatinine 0.7, blood sugar of 91. She had CT scan of the abdomen and pelvis done, that shows 1.9-cm right adrenal nodule. There is a very small ground glass opacity in the inferior central wall mesentery, suspicious for mesenteric panniculitis, lymphoma, or carcinoid. She had PET scan done on 04/27, that was found to be unremarkable. ASSESSMENT: 1. Abdominal versus chest pain, etiology unclear. 2. Mesenteric mass. 3. Weight loss. 4. Chronic obstructive pulmonary disease. 5. Hypertension. PLAN: Patient is going to be admitted in Med/Surg. Dr. Christianson will be consulted. Patient needs laparoscopic biopsy. I will request Dr. Gray to address that. Patient seems to be anemic, will receive two blood transfusions. We will follow CBC and CMP in the a.m. Guido Booth MD
[2017-05-13] MEDS: Levalbuterol 1.25 MG/3 ML Inhal Soln UD IH SCH ×4 (04:14→22:37)
--- NOTE | 2017-05-13 05:01 | CP.PCM.PN ---
Subjective - Date & Time of Evaluation Date of Evaluation: 05/13/17 Time of Evaluation: 04:57 - Subjective Subjective: Nurse calls and tells that her BP is 169/85. She received one unit PRBC and is to receive second unit.Could she hang the second unit. I saw patient at bedside. She has no headache, dizziness now. Stated she had them yesterday AM. Denies sob, wheezing. Medical record was reviewed. This 81 year old white woman was admitted with epigastric to midsternal chest pain going to belly and towards shoulder,anemia. Has PMH of COPD,HTN,thalassemia, mesentric mass. Objective - Vital Signs/Intake and Output Vital Signs (last 24 hours): Temp Pulse Resp BP Pulse Ox 98.7 F 90 16 160/71 H 96 05/13/17 04:07 05/13/17 04:07 05/13/17 04:07 05/13/17 04:07 05/12/17 16:39 Intake and Output: 05/12/17 05/13/17 18:59 06:59 Intake Total 345 Balance 345 - Medications Medications: Current Medications Amlodipine Besylate (Norvasc) 10 mg PO DAILY [facility] Sodium Chloride (Sodium Chloride 0.9%) 1,000 mls @ 50 mls/hr IV .Q20H [facility] Levalbuterol HCl (Xopenex) 1.25 mg IH [id number] [facility] Last Admin: 05/13/17 04:14 Dose: 1.25 mg Morphine Sulfate (Morphine) 2 mg IVP Q4H PRN PRN Reason: Pain, moderate (4-7) Ondansetron HCl (Zofran Inj) 4 mg IVP Q4H PRN PRN Reason: Nausea/Vomiting Pantoprazole Sodium (Protonix Ec Tab) 40 mg PO 0630 [facility] - Labs Labs: PT 14.4 SECONDS (9.4-12.5) H 05/12/17 13:24 INR 1.26 (0.93-1.08) H 05/12/17 13:24 APTT 30.2 Seconds (25.1-36.5) 05/12/17 13:24 Most Recent Lab Values WBC 5.1 10^3/ul (4.5-11.0) D 05/12/17 13:24 RBC 4.52 10^6/uL (3.5-6.1) 05/12/17 13:24 Hgb 7.8 g/dL (12.0-16.0) L 05/12/17 13:24 Hct 28.4 % (36.0-48.0) L 05/12/17 13:24 MCV 62.8 fl (80.0-105.0) L 05/12/17 13:24 MCH 17.3 pg (25.0-35.0) L 05/12/17 13:24 MCHC 27.5 g/dl (31.0-37.0) L 05/12/17 13:24 RDW 28.1 % (11.5-14.5) H 05/12/17 13:24 Plt Count 101 10^3/uL (120.0-450.0) L 05/12/17 13:24 Gran % 60.4 % (50.0-68.0) 05/12/17 13:24 Lymph % (Auto) 32.1 % (22.0-35.0) 05/12/17 13:24 Sebastian % (Auto) 5.5 % (1.0-6.0) 05/12/17 13:24 Eos % (Auto) 1.2 % (1.5-5.0) L 05/12/17 13:24 Baso % (Auto) 0.8 % (0.0-3.0) 05/12/17 13:24 Gran # 3.07 (1.4-6.5) 05/12/17 13:24 Lymph # 1.6 (1.2-3.4) 05/12/17 13:24 Sebastian # 0.3 (0.1-0.6) 05/12/17 13:24 Eos # 0.1 (0.0-0.7) 05/12/17 13:24 Baso # 0.04 K/mm3 (0.0-2.0) 05/12/17 13:24 Corrected WBC (Man) 4.4 K/mm3 (4.5-11.0) L 05/12/17 13:24 Neutrophils % (Manual) 45 % (50.0-70.0) L 05/12/17 13:24 Band Neutrophils % 3 % (0-2) H 05/12/17 13:24 Lymphocytes % (Manual) 40 % (22.0-35.0) H 05/12/17 13:24 Monocytes % (Manual) 2 % (1.0-6.0) 05/12/17 13:24 Eosinophils % (Manual) 4 % (0.0-3.0) H 05/12/17 13:24 Metamyelocytes % 5 % 05/12/17 13:24 Nucleated RBC % 15 % 05/12/17 13:24 Platelet Evaluation Low (NORMAL) 05/12/17 13:24 Hypochromasia 3+ 05/12/17 13:24 Poikilocytosis (manual 1+ 05/12/17 13:24 Anisocytosis (manual) 2+ 05/12/17 13:24 Microcytosis (manual) 2+ 05/12/17 13:24 Target Cells 1+ 05/12/17 13:24 Tear Drop Cells Slight 05/12/17 13:24 Ovalocytes Slight 05/12/17 13:24 PT 14.4 SECONDS (9.4-12.5) H 05/12/17 13:24 INR 1.26 (0.93-1.08) H 05/12/17 13:24 APTT 30.2 Seconds (25.1-36.5) 05/12/17 13:24 Sodium 140 mmol/L (132-148) 05/12/17 13:24 Potassium 4.5 mmol/L (3.6-5.0) 05/12/17 13:24 Chloride 106 mmol/L (98-107) 05/12/17 13:24 Carbon Dioxide 25 mmol/L (21-33) 05/12/17 13:24 Anion Gap 14 (10-20) 05/12/17 13:24 BUN 17 mg/dL (7-21) 05/12/17 13:24 Creatinine 0.7 mg/dl (0.7-1.2) 05/12/17 13:24 Est GFR ( Amer) > 60 05/12/17 13:24 Est GFR (Non-Af Amer) > 60 05/12/17 13:24 Random Glucose 91 mg/dL (70-110) 05/12/17 13:24 Calcium 9.1 mg/dL (8.4-10.5) 05/12/17 13:24 Total Bilirubin 1.2 mg/dL (0.2-1.3) 05/12/17 13:24 AST 37 U/L (14-36) H 05/12/17 13:24 ALT 24 U/L (7-56) 05/12/17 13:24 Alkaline Phosphatase 66 U/L (38-126) 05/12/17 13:24 Troponin I 0.02 ng/mL 05/12/17 13:24 Total Protein 7.6 g/dL (5.8-8.3) 05/12/17 13:24 Albumin 4.3 g/dL (3.0-4.8) 05/12/17 13:24 Globulin 3.3 gm/dL 05/12/17 13:24 Albumin/Globulin Ratio 1.3 (1.1-1.8) 05/12/17 13:24 Amylase 68 U/L (35-125) 05/12/17 13:24 Lipase 129 U/L (23-300) 05/12/17 13:24 Blood Type A POSITIVE 05/12/17 15:23 Antibody Screen Negative 05/12/17 15:23 Crossmatch See Detail 05/12/17 15:23 BBK History Checked Patient has bt 05/12/17 15:23 - Constitutional Appears: Well, No Acute Distress - Head Exam Head Exam: ATRAUMATIC, NORMAL INSPECTION, NORMOCEPHALIC - Eye Exam Eye Exam: Conjunctival injection (Pale) - ENT Exam ENT Exam: Mucous Membranes Dry - Neck Exam Neck Exam: Normal Inspection - Respiratory Exam Respiratory Exam: Clear to Ausculation Bilateral, NORMAL BREATHING PATTERN - Cardiovascular Exam Cardiovascular Exam: +S1 (Normal.), +S2 (Normal.). absent: Tachycardia, JVD - GI/Abdominal Exam GI & Abdominal Exam: absent: Distended - Rectal Exam Rectal Exam: Deferred - Exam Additional comments: Deferred. - Extremities Exam Extremities Exam: Normal Inspection - Back Exam Back Exam: NORMAL INSPECTION - Neurological Exam Neurological Exam: Alert, Awake, Oriented x3 - Psychiatric Exam Psychiatric exam: Normal Affect, Normal Mood - Skin Skin Exam: Pallor Assessment and Plan - Assessment and Plan (Free Text) Assessment: Anemia. Elevated blood pressure reading. Hypertension. Thalassemia. COPD. Mesentric mass. Plan: Lasix 40 mg IV x 1. Continue blood product transfusion. Continue management as per PMD.
[2017-05-13] MEDS: Pantoprazole 40 mg EC Tab PO SCH (05:31)
[2017-05-13] MEDS ORDERED: Morphine 2 mg/ml ISec IVP PRN (10:00)
[2017-05-13 10:02] LABS: ALB/GLOB RATIO 1.2 (1.1-1.8); ALBUMIN 4.1 g/dL (3.0-4.8); ALT/SGPT 28 U/L (7-56); AST/SGOT 34 U/L (14-36); BLOOD UREA NITROGEN 12 mg/dL (7-21); CALCIUM 9.2 mg/dL (8.4-10.5); GFR AFRICAN-AMERICAN > 60; GFR NON-AFRICAN AMERICAN > 60
[2017-05-13 10:08] LABS: TROPONIN I < 0.01 ng/mL
[2017-05-13 10:14] LABS: BASO # 0.03 K/mm3 (0.0-2.0); BASO % 0.7 % (0.0-3.0); EOS % 0.7 % (1.5-5.0); GRAN % 63.6 % (50.0-68.0); LYMPH # 1.2 (1.2-3.4); LYMPH % 27.7 % (22.0-35.0); MEAN CELL VOLUME 67.2 fl (80.0-105.0); MEAN CORPUSCULAR HEMOGLOBIN 20.3 pg (25.0-35.0); MEAN CORPUSCULAR HGB CONC 30.2 g/dl (31.0-37.0); MONO # 0.3 (0.1-0.6); MONO % 7.3 % (1.0-6.0); PLATELET COUNT 71 10^3/uL (120.0-450.0); RBC 5.48 10^6/uL (3.5-6.1); RED CELL DISTRIBUTION WIDTH 29.5 % (11.5-14.5); WHITE BLOOD COUNT 4.4 10^3/ul (4.5-11.0)
[2017-05-13 10:21] LABS: HEMOGLOBIN 11.1 g/dL (12.0-16.0)
--- NOTE | 2017-05-13 11:43 | CP.PCM.PN ---
Subjective - Date & Time of Evaluation Date of Evaluation: 05/13/17 Time of Evaluation: 07:00 - Subjective Subjective: Surgery Progress note. Dr. Gray Pt seen and examined at bedside. No acute events overnight. No F/C. Denies any abdominal discomfort. Does report that she is hungry. No new complaints. Objective - Vital Signs/Intake and Output Vital Signs (last 24 hours): Temp Pulse Resp BP Pulse Ox 98.8 F 69 18 160/90 H 96 05/13/17 09:12 05/13/17 09:12 05/13/17 09:12 05/13/17 10:55 05/13/17 09:12 Intake and Output: 05/13/17 05/13/17 06:59 18:59 Intake Total 345 325 Balance 345 325 - Medications Medications: Current Medications Amlodipine Besylate (Norvasc) 10 mg PO DAILY [facility] Last Admin: 05/13/17 10:55 Dose: 10 mg Sodium Chloride (Sodium Chloride 0.9%) 1,000 mls @ 50 mls/hr IV .Q20H [facility] Levalbuterol HCl (Xopenex) 1.25 mg IH [id number] [facility] Last Admin: 05/13/17 07:39 Dose: 1.25 mg Morphine Sulfate (Morphine) 1 mg IVP Q4H PRN PRN Reason: Pain, moderate (4-7) Ondansetron HCl (Zofran Inj) 4 mg IVP Q4H PRN PRN Reason: Nausea/Vomiting Pantoprazole Sodium (Protonix Ec Tab) 40 mg PO 0630 [facility] Last Admin: 05/13/17 05:31 Dose: 40 mg - Labs Labs: 05/13/17 09:35 05/13/17 09:35 PT 14.4 SECONDS (9.4-12.5) H 05/12/17 13:24 INR 1.26 (0.93-1.08) H 05/12/17 13:24 APTT 30.2 Seconds (25.1-36.5) 05/12/17 13:24 - Constitutional Appears: Well, Non-toxic, No Acute Distress - Head Exam Head Exam: ATRAUMATIC, NORMAL INSPECTION, NORMOCEPHALIC - Eye Exam Eye Exam: EOMI, Normal appearance - ENT Exam ENT Exam: Mucous Membranes Moist - Neck Exam Neck Exam: Full ROM - Respiratory Exam Respiratory Exam: NORMAL BREATHING PATTERN. absent: Accessory Muscle Use, Respiratory Distress - Cardiovascular Exam Cardiovascular Exam: absent: JVD - GI/Abdominal Exam GI & Abdominal Exam: Soft. absent: Distended, Firm, Guarding, Rigid, Tenderness - Extremities Exam Extremities Exam: Normal Inspection. absent: Calf Tenderness - Neurological Exam Neurological Exam: Alert, Awake, Oriented x3 - Psychiatric Exam Psychiatric exam: Normal Affect, Normal Mood - Skin Skin Exam: Dry, Intact, Normal Color, Warm Assessment and Plan - Assessment and Plan (Free Text) Assessment: 81yo F with mesenteric lesion. - CT scan noted with findings of bilateral pulm, R adrenal, and stable mesenteric lesion. Plan: - Transfuse prn - Patient requesting to have discussion with family prior to consenting for procedure. - Tentative OR tomorrow, 05/14. Diagnostic lap with possible bx of mesenteric lesion. NPO past midnight. - f/u AM labs Further recs as per Dr. Isaac Rios PGY1 surgery pager: [phone]
[2017-05-13 13:49] LABS: URINE BILIRUBIN NEGATIVE (NEGATIVE); URINE BLOOD SMALL (NEGATIVE); URINE GLUCOSE (UA) NEGATIVE (NEGATIVE); URINE LEUKOCYTE ESTERASE NEGATIVE Leu/uL (NEGATIVE); URINE NITRATE NEGATIVE (NEGATIVE); URINE PROTEIN NEGATIVE mg/dL (<30 mg/dL); URINE UROBILINOGEN 0.2 E.U./dL (<1 E.U./dL)
[2017-05-13 13:50] LABS: URINE APPEARANCE CLEAR (CLEAR); URINE COLOR YELLOW (YELLOW)
[2017-05-13 14:01] LABS: URINE BACTERIA FEW (NEG); URINE EPITHELIAL CELLS 0 - 2 /hpf (0-5); URINE RBC 0 - 2 /hpf (0-2); URINE WBC 0 - 2 /hpf (0-6)
--- NOTE | 2017-05-13 16:06 | CP.PCM.CON ---
<Melissa Acevedo - Last Filed: 05/13/17 16:06> History of Present Illness - History of Present Illness History of Present Illness: Seen and examined at the bedside earlier today, chart reviewed. Request for GI consult is for mesenteric mass. HPI: This is a 81-year-old female with a past medical history of thalassemia beta trait, chronic anemia, COPD and hypertension was sent by Dr. Morejon for chest pain, abdominal pain diarrhea and vomiting. The patient's reported that she had 3 attacks the past speak. She reports that the pain occurred postprandial. She found relief after bowel movement and vomiting. The patient also complains of decreased appetite and feeling of fullness. No reports of any overt GI bleed. The patient did have a recent endoscopy and colonoscopy about [address] Watt and reports that they were both negative. 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 Also noted was right adrenal nodule no lymphadenopathy. Then on 04/27/17 the patient had a PET /CT scan which was negative for F DG avid mass or lymphadenopathy and hypodensity masslike lesion at midline lower abdomen is noted without evidence of increased FDG uptake. The patient was planned for a mesenteric biopsy but when to see patient this a.m. and patient stated that she was not up to the biopsy. No further reports of nausea, or vomiting. Past medical history: Chronic anemia, COPD, beta thalassemia trait, hypertension Past surgical history: Appendectomy, EGD/colonoscopy [address] Watt , patient reports negative findings Allergies: No known drug allergies Medications: Reviewed as per MAR Social history: Positive for smoking, denies EtOH or illicit drugs Family history: Noncontributory at this time ROS: Systems reviewed. Positive findings see HPI. Past Patient History - Infectious Disease Hx of Infectious Diseases: None - Past Medical History & Family History Past Medical History?: Yes - Past Social History Smoking Status: Light Smoker < 10 Cigarettes Daily - CARDIAC Hx Hypertension: Yes (No on medications currently) - NEUROLOGICAL Hx Neurological Disorder: Yes (syncope) Hx Dizziness: Yes Hx Seizures: (pt denies) Other/Comment: multiple episodes of syncope last episode about 1 yr ago, Pt stated " sometimes I feel like I'm going to pass out but I sit down and it passes." - HEENT Hx HEENT Problems: Yes (eyeglasses) Hx Cataracts: Yes (b/l sx) Hx Macular Degeneration: Yes Other/Comment: 70% vision loss left eye and 5% vision loss right eye, from macular degeneration - HEMATOLOGICAL/ONCOLOGICAL Hx Blood Disorders: Yes (thallasemia/genetic dx 5/6 yrs ago) Hx Anemia: Yes - MUSCULOSKELETAL/RHEUMATOLOGICAL Hx Falls: Yes (past) Hx Unsteady Gait: Yes Other/Comment: pt fell backwards hanging curtains in 2013 around 10am and does not remember anything woke up at 1pm walked downstairs and called her neice. went to er all tests negative as per pt - GASTROINTESTINAL Hx Gastrointestinal Disorders: Yes (gi bleed) Other/Comment: chronic black stools +guiac for abou 6 or 8 months - PSYCHIATRIC Hx Substance Use: No - SURGICAL HISTORY Hx Surgeries: Yes (b/l cataracts) - ANESTHESIA Hx Anesthesia Reactions: No Meds Allergies/Adverse Reactions: Allergies Allergy/AdvReac Type Severity Reaction Status Date / Time No Known Allergies Allergy Verified 05/12/17 12:50 - Medications Medications: Current Medications Amlodipine Besylate (Norvasc) 10 mg PO DAILY [facility] Last Admin: 05/13/17 10:55 Dose: 10 mg Sodium Chloride (Sodium Chloride 0.9%) 1,000 mls @ 50 mls/hr IV .Q20H [facility] Levalbuterol HCl (Xopenex) 1.25 mg IH [id number] [facility] Last Admin: 05/13/17 13:58 Dose: 1.25 mg Morphine Sulfate (Morphine) 1 mg IVP Q4H PRN PRN Reason: Pain, moderate (4-7) Ondansetron HCl (Zofran Inj) 4 mg IVP Q4H PRN PRN Reason: Nausea/Vomiting Pantoprazole Sodium (Protonix Ec Tab) 40 mg PO 0630 [facility] Last Admin: 05/13/17 05:31 Dose: 40 mg Physical Exam - Constitutional Appears: No Acute Distress - Head Exam Head Exam: NORMOCEPHALIC - Eye Exam Eye Exam: absent: Normal appearance, Scleral icterus - ENT Exam ENT Exam: Mucous Membranes Moist - Neck Exam Neck exam: Positive for: Normal Inspection - Respiratory Exam Respiratory Exam: Decreased Breath Sounds, NORMAL BREATHING PATTERN. absent: Rales, Wheezes, Respiratory Distress - Cardiovascular Exam Cardiovascular Exam: +S1, +S2 - GI/Abdominal Exam GI & Abdominal Exam: Normal Bowel Sounds, Soft. absent: Guarding, Organomegaly , Rebound, Tenderness - Extremities Exam Extremities exam: Positive for: pedal pulses present. Negative for: calf tenderness - Neurological Exam Neurological exam: Alert, Oriented x3 - Skin Skin Exam: Dry, Warm Results - Vital Signs Recent Vital Signs: Last Vital Signs Temp 98.8 F 05/13/17 09:12 Pulse 69 05/13/17 09:12 Resp 18 05/13/17 09:12 BP 160/90 H 05/13/17 10:55 Pulse Ox 96 05/13/17 09:12 - Labs Result Diagrams: 05/13/17 09:35 05/13/17 09:35 Labs: Laboratory Results - last 24 hr 05/13/17 05/13/17 05/13/17 09:35 09:35 13:20 WBC 4.4 L RBC 5.48 Hgb 11.1 L D Hct 36.8 MCV 67.2 L D MCH 20.3 L MCHC 30.2 L RDW 29.5 H Plt Count 71 L Gran % 63.6 Lymph % (Auto) 27.7 Gillespie % (Auto) 7.3 H Eos % (Auto) 0.7 L Baso % (Auto) 0.7 Gran # 2.80 Lymph # 1.2 Gillespie # 0.3 Eos # 0.0 Baso # 0.03 Sodium 140 Potassium 3.8 Chloride 102 Carbon Dioxide 26 Anion Gap 15 BUN 12 Creatinine 0.5 L Est GFR ( Amer) > 60 Est GFR (Non-Af Amer) > 60 Random Glucose 91 Calcium 9.2 Total Bilirubin 1.3 AST 34 ALT 28 Alkaline Phosphatase 68 Troponin I < 0.01 D Total Protein 7.5 Albumin 4.1 Globulin 3.4 Albumin/Globulin Ratio 1.2 Urine Color Yellow Urine Appearance Clear Urine pH 6.0 Ur Specific [place] 1.020 Urine Protein Negative Urine Glucose (UA) Negative Urine Ketones Negative Urine Blood Small H Urine Nitrate Negative Urine Bilirubin Negative Urine Urobilinogen 0.2 Ur Leukocyte Esterase Negative Urine RBC 0 - 2 Urine WBC 0 - 2 Ur Epithelial Cells 0 - 2 Urine Bacteria Few Assessment & Plan - Assessment and Plan (Free Text) Assessment: Assessment: Mesenteric mass Acute on chronic anemia, status post blood transfusion Thalassemia COPD Hypertension Plan: Patient was planned for laparoscopic biopsy today, with surgical team, patient states she is not up for it, not feeling well. Heart healthy diet as tolerated monitor H&H and transfuse as necessary Continue PPI As per hematology/oncology Thank you for this consult and for allowing us to participate in your patient's care, further recommendations based upon clinical course. Seen and discussed with Dr. Christianson. <Janny Christianson V - Last Filed: 05/15/17 19:53> Results - Vital Signs Recent Vital Signs: Last Vital Signs Temp 98.5 F 05/14/17 16:00 Pulse 78 05/14/17 16:00 Resp 18 05/14/17 16:00 BP 128/69 05/14/17 16:00 Pulse Ox 96 05/14/17 16:00 - Labs Result Diagrams: 05/14/17 06:50 05/14/17 06:50 Attending/Attestation - Attestation I have personally seen and examined this patient.: Yes I have fully participated in the care of the patient.: Yes I have reviewed all pertinent clinical information: Yes Notes (Text): This is a delayed addendum to GI consultation report dictated by Melissa Acevedo APN.The patient was seen and examined earlier. Medical records, lab studies, imagings were reviewed. Last 24 hours events reviewed. Agreed with the above treatment plan as outlined in Melissa Acevedo APN's notes the with the addition of the following patient was seen and evaluated on 05/13/2016 at the request of Dr. Matt, surgeon and Dr. Booth. patient has mesenteric lesion. History of anemia and drop in blood count status post transfusion. History of stool for occult blood positive. A sheet was evaluated by Dr. Perez wax specialist before. Scheduled for OR on 05/14.. Discussed with the Dr. Matt the surgical finding later on I did speak with the patient at length patient later on 05/14/2016 she is planning to follow up with her wax specialist for future workup . She was clearly told that she needs further workup including capsule study in view of his anemia and occult blood positive. I will discuss with Dr. Nelson and also with Dr. Booth 05/15/17 19:47
--- NOTE | 2017-05-13 18:58 | PN ---
DATE: SUBJECTIVE: The patient is 81 years old, seen and examined, lying in bed, seems to be comfortable. No more chest pain. No abdominal pain. However, she states she has a loss of appetite. PHYSICAL EXAMINATION: VITAL SIGNS: She is afebrile, pulse 69, respirations 18, blood pressure 160/90. LUNGS: Bilateral good fair airflow. No rhonchi or crackle. HEART: S1 and S2 audible. ABDOMEN: Soft, nontender. No rebound. No guarding. NEUROLOGICAL: She is awake, alert, oriented. Able to communicate. LABORATORY DATA: WBC is 4.4, hemoglobin 11, hematocrit 36.8, platelet of 71. Chemistry: Sodium 140, potassium 3.8, chloride 102, CO2 of 26, BUN 12, creatinine 0.5, blood sugar of 91. Echocardiogram is pending. CT scan shows mesenteric mass. ASSESSMENT: 1. Symptomatic anemia. 2. Mesenteric mass. 3. History of thalassemia. 4. Hypertension. PLAN: The patient is currently on Norvasc. Give her one dose of losartan. The patient does not want to go for laparoscopic biopsy and her son want to talk to a surgeon. Once after mutual discussion, she might be scheduled for biopsy tomorrow. Guido Booth MD
[2017-05-14 07:11] LABS: HEMOGLOBIN 10.4 g/dL (12.0-16.0); MEAN CORPUSCULAR HEMOGLOBIN 19.8 pg (25.0-35.0); MEAN CORPUSCULAR HGB CONC 29.6 g/dl (31.0-37.0); PLATELET COUNT 98 10^3/uL (120.0-450.0); RBC 5.24 10^6/uL (3.5-6.1); RED CELL DISTRIBUTION WIDTH 29.8 % (11.5-14.5); WHITE BLOOD COUNT 3.6 10^3/ul (4.5-11.0)
[2017-05-14] MEDS: Pantoprazole 40 mg EC Tab PO SCH (07:14)
[2017-05-14 07:43] LABS: BLOOD UREA NITROGEN 19 mg/dL (7-21); GFR AFRICAN-AMERICAN > 60; GFR NON-AFRICAN AMERICAN > 60
[2017-05-14] MEDS ORDERED: Bupivacaine 0.5% Inj(30mL) ONE (09:58)
[2017-05-14] MEDS ORDERED: Morphine 2 mg/ml ISec IVP PRN ×2 (09:59→10:05)
[2017-05-14] MEDS ORDERED: Lactated Ringer's 1,000 ML IV SCH (10:00)
[2017-05-14] MEDS ORDERED: Propofol 10 mg/ml Inj (20 ML) ONE (10:26)
[2017-05-14] MEDS ORDERED: Midazolam 2 MG/2 ML VIAL ONE (10:27)
[2017-05-14] MEDS ORDERED: Rocuronium 10 mg/ml (5 ml) ONE (10:28)
[2017-05-14] MEDS ORDERED: CeFAZolin 1 gm in NS 100ml IVPB ONE (10:44)
[2017-05-14] MEDS ORDERED: Bupivacaine 0.5% Inj(30mL) IJ ONE ×2 (10:46)
[2017-05-14] MEDS ORDERED: Glycopyrrolate 0.2 mg/ml (2ml vial) ONE (11:25)
--- NOTE | 2017-05-14 11:43 | PCM.SURG1 ---
Surgeon's Initial Post Op Note - Surgeon's Notes Surgeon: Dr. Gray [place]: Dr. Rosenbaum PGY-3 Type of Anesthesia: General Endo Anesthesia Administered By: Dr. 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
--- NOTE | 2017-05-14 16:42 | CARD ---
APPROVED REPORT EXAM: Two-dimensional and M-mode echocardiogram with Doppler and color Doppler. 2D DIMENSIONS Left Atrium (2D)4.5 (1.6-4.0cm)IVSd1.3 (0.7-1.1cm) LVDd3.4 (3.9-5.9cm)PWd1.5 (0.7-1.1cm) LVDs2.4 (2.5-4.0cm)FS (%) 28.4 % LVEF (%)56.1 (>50%) M-Mode DIMENSIONS Aortic Root3.00 (2.2-3.7cm)Aortic Cusp Exc.1.60 (1.5-2.0cm) Aortic Valve AoV Peak Tdnembut532.0cm/[place] Peak GR.12mmHg Mitral Valve MV E Mnukmcga34.2cm/sMV A Imhzkqay13.0cm/sE/A ratio0.9 TDI Lateral E' Peak V7.60cm/sMedial E' Peak V4.78cm/sE/Lateral E'8.4 E/Medial E'13.4 Pulmonary Valve PV Peak Jurkuehp24.6cm/sPV Peak Grad.2mmHg Tricuspid Valve TR Peak Mifpzmxp485hd/sRAP [id number] Peak Gr.29mmHg [id number] LEFT VENTRICLE The left ventricle is normal size. There is mild concentric left ventricular hypertrophy. The left ventricular function is normal.EF-55-60% There is normal LV segmental wall motion. Transmitral Doppler flow pattern is Grade III-reversible restrictive diastolic dysfunction. No left ventricle thrombus noted on this study. There is no ventricular septal defect visualized. There is no left ventricular aneurysm. RIGHT VENTRICLE The right ventricle is normal size. There is normal right ventricular wall thickness. The right ventricular systolic function is normal. ATRIA The left atrium is mildly dilated. The right atrium is borderline dilated. The interatrial septum is intact with no evidence for an atrial septal defect. AORTIC VALVE The aortic valve is thickened but opens well. The aortic valve is moderately thickened. No aortic regurgitation is present. Aortic Sclerosis Vs Mild As There is no aortic valvular vegetation. MITRAL VALVE The mitral valve is thickened but opens well. Mitral regurgitation is mild to moderate. There is no mitral valve stenosis. There is no evidence of mitral valve prolapse. TRICUSPID VALVE The tricuspid valve leaflets are thickened , but open well. There is mild to moderate tricuspid regurgitation.RVSP-39 mmof Hg. There is no tricuspid valve stenosis. There is no tricuspid valve prolapse or vegetation. PULMONIC VALVE The pulmonary valve is normal in structure. There is trace pulmonic valvular regurgitation. There is no pulmonic valvular stenosis. GREAT VESSELS The aortic root is normal in size. The ascending aorta is normal in size. The pulmonary artery is normal. The IVC is normal in size and collapses >50% with inspiration. PERICARDIAL EFFUSION There is no pleural effusion. There is a trace pericardial effusion. <Conclusion> The left ventricle is normal size. There is mild concentric left ventricular hypertrophy. The left ventricular function is normal.EF-55-60% Aortic Sclerosis Vs Mild As Mitral regurgitation is mild to moderate. There is mild to moderate tricuspid regurgitation.RVSP-39 mmof Hg. The IVC is normal in size and collapses >50% with inspiration. There is a trace pericardial effusion.
[2017-05-14 19:37] VITALS: TEMP 98.5
[2017-05-14 19:38] VITALS: BP 128/69; PULSE 78; RESP 18; O2SAT 96
--- NOTE | 2017-05-14 22:27 | OP ---
PROCEDURE DATE: 05/14/2017 PREOPERATIVE DIAGNOSIS: Intraabdominal/pelvic mass. POSTOPERATIVE DIAGNOSIS: Intraabdominal/pelvic mass. PROCEDURE PERFORMED: Exploratory laparoscopy with biopsy of the intraabdominal mass and cytology of peritoneal fluid. SURGEON: Delta Gray MD OUTBOARD MOTORBOAT RIGGER: Dr. Rosenbaum. ANESTHESIA ADMINISTERED BY: Dr. Del Rosario. TYPE OF ANESTHESIA: General endotracheal anesthesia. ESTIMATED BLOOD LOSS: Minimal. SPECIMEN: 1. Biopsy of the mass. 2. Cytology of the peritoneal fluid. INDICATIONS: The patient is an 81-year-old female with history of thalassemia who comes in with anemia and CT scan revealing presence of mass in the area of the sacral promontory extending from the abdominal cavity to the pelvis. The patient complains of recurrent pains in the abdomen which was starting in the lower abdomen and extending all the way up to the chest. Given no other findings on colonoscopy or endoscopy and CT scan, a decision was made to proceed with biopsy of the mass suspected for possible lymphoma versus sarcoma. DESCRIPTION OF PROCEDURE: The patient was brought to the operating room, placed on the operating table in supine position. The patient was connected to EKG, blood pressure and pulse oximetry monitors. The patient then underwent general endotracheal anesthesia and was prepped and draped in the usual sterile fashion. First, a standard time-out procedure took place, when everybody in the room agreed as to the patient's identity, diagnosis, and procedure to be performed. Using 5 mm scope, access to the abdomen was obtained through subcostal placement of the 5 mm port under direct vision with the scope. The area was earlier anesthetized with Lidocaine. Once access to the abdominal cavity was obtained, careful evaluation revealed the presence of normal looking liver, normal looking bowel and spleen as well as visible portion of the uterus. There was some adhesions of the omentum to the right lower quadrant where the patient had previous appendectomy. There was no other obvious abnormalities. We put the patient in the Trendelenburg and carefully pushed the small bowel out of the pelvis into the upper abdomen. Some of the bowel was still stuck down in the pelvis and therefore it was pushed aside in order to expose the area of the sacral promontory where the mass was noted on the CAT scan. That revealed the presence of mesenteric mass with small areas of white nodularities and that was grabbed with grasper and elevated and carefully with grasper. It appears that it possibly could represent lymph nodes and therefore careful dissection was started to expose one of those little nodules. As we were exposing it, we noted that small amount of white milky fluid came out which was suspected to be chyle. Once this was done, a small piece of the tissue surrounding this area was taken out and sent as a specimen. There was also some fluid in the pelvis which was carefully drained and sent as a specimen for cytology. The remaining evaluation of abdominal cavity showed no abnormalities. I could not get down to the areas of ovaries due to the adhesions and overlying small bowel, but there was no any visible abnormalities in the area near the uterus and the fallopian tubes which were noted. Then, the procedure was carefully released from the pneumoperitoneum after all the trocars were reevaluated for bleeding and none was noted. The pneumoperitoneum was released. Trocars were removed, and the wounds were closed using 3-0 Vicryl for deep subcutaneous layer and 4-0 Monocryl for skin. A sterile Dermabond dressing was applied to all the wounds. The patient tolerated the procedure well, and there was no complications. The patient was awakened and transferred to the recovery room for further observation. Delta Gray MD
--- NOTE | 2017-05-15 07:17 | DS ---
HISTORY OF PRESENT ILLNESS: The patient is 81-year-old, seen and examined while in OR for laparoscopic mesenteric mass biopsy. PHYSICAL EXAMINATION: GENERAL: Sleepy, but arousable. VITAL SIGNS: The patient is afebrile, pulse 63, respirations 20, blood pressure 154/76. LUNGS: Bilateral good airflow. No rhonchi or crackles. HEART: S1, S2 audible. ABDOMEN: Soft, slight palpable discomfort. NEUROLOGIC: She is awake, alert, oriented, communicative. LABORATORY DATA: Her WBC 3.6, hemoglobin 10.4, hematocrit 35, platelets 98,000. Chemistry: Sodium 140, potassium 4.3, chloride 105, CO2 27, BUN 19, creatinine 0.5, blood sugar of 95. ASSESSMENT AND PLAN: 1. Status post laparoscopic mesenteric mass biopsy. 2. Weight loss. 3. Pancytopenia. 4. Hypertension. So, plan if the patient is clinically stable by the end of the day, she can be discharged later on today and biopsy can be followed as outpatient. Guido Booth MD
--- NOTE | 2017-05-17 09:55 | DS ---
ADDENDUM DATE: 05/14/2017 The patient underwent laparoscopic biopsy, got a phone call from Dr. Gray that it seems like dilated duct. Upon biopsy, the chyle was coming out, so biopsy and fluids were sent. RECOMMENDATIONS: To watch her overnight and possible transfer tomorrow, but the patient was told if she is stable she could go home and she made up her mind to go home. She does not want to stay to be observed for another 24 hours. I spoke to the patient's grandson, Partha who stated that there will be two adults are staying with the patient and if anything happens, they will bring her back to Emergency Room, but since she had made up her mind that she has to go, so she will go today and she will follow up with Dr. Nelson once the biopsy is available. Her medication has been sent to Norvasc 10 mg daily and losartan 50 mg daily. We will follow up her biopsy and she will resume her other medications. Guido Booth MD
--- NOTE | 2017-05-21 19:56 | CP.PCM.CON ---
History of Present Illness - History of Present Illness History of Present Illness: Pt. is an 81 year old female well known to me from office. She called me today saying she has abdominal pain, nausea and vomiting since morning. I advised her to go to the ER. She has mesentric mass on recent scans. CT-PET done in Nov is negative. She has history of abnormal weight loss. 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 No chest pain. Review of Systems - Constitutional Constitutional: As Per HPI, Anorexia, Weakness - EENT Eyes: As Per HPI - Breasts Breasts: absent: As Per HPI, Change in Shape, Mass, Pain, Nipple Discharge, Nipple Inversion, Skin Changes, Swelling, Other - Cardiovascular Cardiovascular: absent: As Per HPI, Acrocyanosis, Chest Pain, Chest Pain at Rest , Chest Pain with Activity, Claudication, Diaphoresis, Dyspnea, Dyspnea on Exertion, Edema, Irregular Heart Rhythm, Pain Radiating to Arm/Neck/Jaw, Leg Edema, Leg Ulcers, Lightheadedness, Orthopnea, Palpitations, Paroxysmal Nocturnal Dyspnea, Pedal Edema, Radiating Pain, Rapid Heart Rate, Slow Heart Rate, Syncope, Other - Respiratory Respiratory: absent: As Per HPI, Cough, Dyspnea, Hemoptysis, Dyspnea on Exertion , Wheezing, Snoring, Stridor, Pain on Inspiration, Chest Congestion, Excessive Mucous Production, Change in Mucous Color, Pain with Coughing, Other - Gastrointestinal Gastrointestinal: As Per HPI - Genitourinary Genitourinary: absent: As Per HPI, Change in Urinary Stream, Difficulty Urinating, Dysuria, Flank Pain, Hematuria, Pyuria, Nocturia, Urinary Incontinence, Urinary Frequency, Urinary Hesitance, Urinary Urgency, Voiding Freq/Small Amts, Freq UTI, Hx Renal/Bladder Calculi, Hx /Renal Surgery, Bladder Distension, Other - Reproductive: Female Reproductive:Female: absent: As Per HPI, Amenorrhea, Amenorrhea/ Control, Currently Menstual, Cycle <21 Days, Cycle >35 Days, Cycle Variable, Menses 1-7 Days, Menses >/= 8 Days, Menses Variable, Cycle > 4 Weeks Between, No Menses for 6 Months, Heavy Menses, Light Menses, Normal Menses, Spotting Between Cycles , S/P Hysterectomy, Menopausal, Post Menopausal, Premenarche, Abnormal Vaginal Bleeding, Dysmenorrhea, Dyspareunia, Genital Lesions, Genital Pruritis, Pelvic Pain, Prolapse Symptoms, Sexual Dysfunction, Vaginal Discharge, Vaginal Dryness , Vaginal Odor, Vaginal Pruritis, Other - Menstruation Menstruation: absent: As Per HPI, Amenorrhea, Amenorrhea/ Control, Currently Menstual, Cycle <21 Days, Cycle >35 Days, Cycle Variable, Menses 1-7 Days, Menses >/= 8 Days, Menses Variable, Cycle > 4 Weeks Between, No Menses for 6 Months, Heavy Menses, Light Menses, Normal Menses, Spotting Between Cycles , S/P Hysterectomy, Menopausal, Post Menopausal, Premenarche, Abnormal Vaginal Bleeding, Dysmenorrhea, Other - Musculoskeletal Musculoskeletal: absent: As Per HPI, Abnormal Gait, Arthralgias, Atrophy, Back Pain, Deformity, Joint Swelling, Limited Range of Motion, Loss of Height, Muscle Cramps, Muscle Weakness, Myalgias, Neck Pain, Numbness, Radiating Pain into Limb, Stiffness, Tingling, Other - Integumentary Integumentary: absent: As Per HPI, Acne, Alopecia, Bleeding Lesions, Change in Hair, Change in Nails, Change in Pigmentation, Changing Lesions, Dry Skin, Erythema, Furuncle, Hirsutism, Lesions, New Lesions, Non-Healing Lesions, Photosensitivity, Pruritus, Rash, Skin Pain, Skin Ulcer, Sores, Striae, Swelling , Unusual Bruising, Wounds, Jaundice, Other - Neurological Neurological: absent: As Per HPI, Abnormal Gait, Abnormal Hearing, Abnormal Movements, Abnormal Speech, Behavioral Changes, Burning Sensations, Confusion, Convulsions, Disequilibrium, Dizziness, Numbness, Focal Weakness, Frequent Falls , Headaches, Lack of Coordination, Loss of Vision, Memory Loss, Paresthesias, Radicular Pain, Restless Legs, Sensory Deficit, Syncope, Tingling, Tremor, Vertigo, Weakness, Other Visual Disturbances, Other - Endocrine Endocrine: absent: As Per HPI, Change in Body Appearance, Change in Libido, Cold Intolorance, Deepening of Voice, Excessive Sweating, Fatigue, Flushing, Heat Intolorance, Increase in Ring/Shoe/Hat Size, Palpitations, Polydipsia, Polyphagia, Polyuria, Other - Hematologic/Lymphatic Hematologic: As Per HPI Past Patient History - Infectious Disease Hx of Infectious Diseases: None - Past Medical History & Family History Past Medical History?: Yes - Past Social History Smoking Status: Light Smoker < 10 Cigarettes Daily - CARDIAC Hx Hypertension: Yes (No on medications currently) - NEUROLOGICAL Hx Neurological Disorder: Yes (syncope) Hx Dizziness: Yes Hx Seizures: (pt denies) Other/Comment: multiple episodes of syncope last episode about 1 yr ago, Pt stated " sometimes I feel like I'm going to pass out but I sit down and it passes." - HEENT Hx HEENT Problems: Yes (eyeglasses) Hx Cataracts: Yes (b/l sx) Hx Macular Degeneration: Yes Other/Comment: 70% vision loss left eye and 5% vision loss right eye, from macular degeneration - HEMATOLOGICAL/ONCOLOGICAL Hx Blood Transfusions: Yes Hx Blood Transfusion Reaction: No - MUSCULOSKELETAL/RHEUMATOLOGICAL Hx Falls: Yes (past) Hx Unsteady Gait: Yes Other/Comment: pt fell backwards hanging curtains in 2013 around 10am and does not remember anything woke up at 1pm walked downstairs and called her neice. went to er all tests negative as per pt - GASTROINTESTINAL Hx Gastrointestinal Disorders: Yes (gi bleed) Other/Comment: chronic black stools +guiac for abou 6 or 8 months - PSYCHIATRIC Hx Substance Use: No - SURGICAL HISTORY Hx Surgeries: Yes (b/l cataracts) - ANESTHESIA Hx Anesthesia Reactions: No Meds Allergies/Adverse Reactions: Allergies Allergy/AdvReac Type Severity Reaction Status Date / Time No Known Allergies Allergy Verified 05/12/17 12:50 Physical Exam - Constitutional Appears: In Acute Distress - Head Exam Head Exam: ATRAUMATIC, NORMAL INSPECTION, NORMOCEPHALIC - Eye Exam Eye Exam: Normal appearance - ENT Exam ENT Exam: Mucous Membranes Moist, Normal Exam - Neck Exam Neck exam: Positive for: Normal Inspection - Respiratory Exam Respiratory Exam: Clear to Auscultation Bilateral, NORMAL BREATHING PATTERN - Cardiovascular Exam Cardiovascular Exam: REGULAR RHYTHM, +S1, +S2 - GI/Abdominal Exam GI & Abdominal Exam: Normal Bowel Sounds, Soft - Extremities Exam Extremities exam: Positive for: normal inspection - Back Exam Back exam: NORMAL INSPECTION - Neurological Exam Neurological exam: Alert, CN II-XII Intact, Normal Gait, Oriented x3, Reflexes Normal - Skin Skin Exam: Normal Color, Warm Results - Vital Signs Recent Vital Signs: Last Vital Signs Temp 98.5 F 05/14/17 16:00 Pulse 78 05/14/17 16:00 Resp 18 05/14/17 16:00 BP 128/69 05/14/17 16:00 Pulse Ox 96 05/14/17 16:00 - Labs Result Diagrams: 05/14/17 06:50 05/14/17 06:50 Assessment & Plan - Assessment and Plan (Free Text) Plan: 1. Abdominal pain 2. Mesentric mass 3. Anemia Plan : NPO, IVF. Surgery consult for biopsy of mesentric mass, suspicious for NHL. anemia : thalasemia trait. Hb/hct stable. Discussed with Dr. Booth. Spoke to crystal Blair. He agreed with the plan. - Date & Time Date: 05/12/17 Time: 18:00
== END 2017-05-14 18:37 | disposition home or self-care (01) | DRG 815 ==
LOC: ED 12:38 → ERH 17:16 → 5RSO 20:20 → OBSVTOIN 05-14 17:30
PROVIDERS: ADMIT Internal Medicine; ATTEND Internal Medicine
PROC: 3E0F7GC Introduction of Other Therapeutic Substance into Respiratory Tract, Via Natural or Artificial Opening (ICD-10-PCS; 2017-05-13)
PROC: 0DBV4ZX Excision of Mesentery, Percutaneous Endoscopic Approach, Diagnostic (ICD-10-PCS; principal; 2017-05-14 10:45)
DX: I89.8 Other specified noninfective disorders of lymphatic vessels and lymph nodes (principal); D61.818 Other pancytopenia; E27.8 Other specified disorders of adrenal gland; J44.9 Chronic obstructive pulmonary disease, unspecified; I10 Essential (primary) hypertension; H35.30 Unspecified macular degeneration; D56.3 Thalassemia minor; R63.4 Abnormal weight loss

== ENCOUNTER 2017-06-09 11:03 | Day surgery (SDC) | payer MEDICARE, BC ==
[2017-06-09 11:39] VITALS: RESP 20; TEMP 97.4; O2SAT 98
[2017-06-09 11:40] VITALS: BMI 22.6
[2017-06-09] MEDS ORDERED: Lidocaine 1% Inj (20ml) ONE (12:11)
--- NOTE | 2017-06-09 14:06 | HP ---
HISTORY OF PRESENT ILLNESS: Ms. Barros is an 81-year-old female admitted to same-day surgery for severe anemia and bone marrow aspiration biopsy for evaluation of anemia. She also has a vague mesenteric mass, which was biopsied, it was reactive. She also complains of weight loss and fatigue. PAST MEDICAL HISTORY: Thalassemia, COPD, and hypertension. ALLERGIES: NO KNOWN DRUG ALLERGIES. HOME MEDICATIONS: None. SOCIAL HISTORY: Lives with son. PERSONAL HISTORY: Current smoker. REVIEW OF SYSTEMS: As per HPI. Rest of 12-point review of systems reviewed negative. PHYSICAL EXAMINATION: GENERAL: Comfortable in bed, in no acute distress. VITAL SIGNS: Temperature 98.7, heart rate 80 per minute, respiratory rate 15 per minute, and blood pressure 130/80. HEENT: Pallor positive. NECK: No lymphadenopathy. CHEST: Air entry present and equal bilaterally. No added sounds. CARDIOVASCULAR: S1 and S2 normal. No murmur. No gallop. ABDOMEN: Soft and nontender. No hepatosplenomegaly. EXTREMITIES: No edema. SKIN: No petechiae. No rash. SPINE: Nontender. LABORATORY DATA: Hemoglobin 8, platelets 101, and white count is 5.1. Sodium 140, potassium 4.5, and creatinine 0.7. ASSESSMENT: 1. Anemia. 2. abnormal weight loss. 3. Chronic obstructive pulmonary disease. 4. Hypertension. PLAN: She is admitted to same-day surgery for bone marrow aspiration biopsy for evaluation of anemia. She has thalassemia trait. Hemoglobin declines to 6 g/dL. She is required blood transfusions on several occasions. Biopsy of the mesenteric mass is negative for lymphoma, which shows reactive in nature. No malignancy. She had CT PET scan done, which was negative. Bone marrow aspiration biopsy done today. Nneka Nelson MD RUTH
[2017-06-09 14:27] VITALS: BP 139/76; PULSE 88
--- NOTE | 2017-06-09 14:44 | PROCN ---
DATE: 06/09/2017 PROCEDURES: 1. Bone marrow aspiration. 2. Bone marrow biopsy. INDICATION FOR PROCEDURE: Anemia. ANESTHESIA: Lidocaine 1%. DESCRIPTION OF PROCEDURE: The patient was laid in right lateral position, cleaning and dressing done on the left iliac crest. Local anesthesia was by 1% lidocaine. Bone marrow aspirate samples were obtained using Jamshidi needle. Separate bone marrow aspiration and biopsy was done with a separate puncture with Jamshidi needle. A 0.5 cm of bone marrow biopsy was obtained. Samples were sent to [facility]. Aspirate sample was sent for flow cytometry and cytogenetics, and molecular studies. The patient tolerated the procedure well. No complications of bleeding or pain. She was advised to remove the dressing tomorrow. Discharge instructions were given to the patient. Vitals stable post procedure. Nneka Nelson MD
== END 2017-06-09 13:45 | disposition home or self-care (01) ==
LOC: OPSURG 11:03
PROVIDERS: ATTEND Internal Medicine Medical Oncology
DX: D56.3 Thalassemia minor (principal); I10 Essential (primary) hypertension; J44.9 Chronic obstructive pulmonary disease, unspecified; R63.4 Abnormal weight loss; F17.200 Nicotine dependence, unspecified, uncomplicated

== ENCOUNTER 2017-08-17 15:25 | Observation (INO) | payer MEDICARE, BC ==
[2017-08-17 16:01] VITALS: BMI 23.2
--- NOTE | 2017-08-17 16:18 | ED PDOC ---
Arrival/HPI - General Chief Complaint: Abnormal Labs Time Seen by Provider: 08/17/17 16:10 Historian: Patient, Family EM Caveat: Acuity of Condition - History of Present Illness Narrative History of Present Illness (Text): 08/17/17 16:13 Fiorella Martínez is an 81 year old female with a past medical history of MDS and anemia, who presents to the emergency department sent in by Dr. Nelson complaining of fatigue and difficulty breathing for the past week or more. Patient states that she has been here many times for similar issues and typically requires blood transfusion for a very low hemoglobin level. Patient denies chest pain, nausea, vomiting, diarrhea, fever, back pain, syncope, GIB, or any other complaints at this time. Time/Duration: 24 hours Symptom Onset: Gradual Symptom Course: Worsening Quality: Unable to Describe Severity Level: 2 Activities at Onset: Rest Context: Home Past Medical History - Provider Review Nursing Documentation Reviewed: Yes - Travel History Have you recently traveled outside [place] w/in the past 3 mons?: No - Infectious Disease Hx of Infectious Diseases: None - Cardiac Hx Cardiac Disorders: Yes Hx Hypertension: Yes - Pulmonary Hx Respiratory Disorders: No - Neurological Hx Neurological Disorder: Yes Hx Dizziness: Yes Hx Syncope: Yes - HEENT Hx HEENT Disorder: Yes (eyeglasses) Hx Cataracts: Yes Hx Macular Degeneration: Yes - Renal Hx Renal Disorder: No - Endocrine/Metabolic Hx Endocrine Disorders: No - Hematological/Oncological Hx Blood Disorders: Yes Hx Anemia: Yes Hx Blood Transfusions: Yes Hx Blood Transfusion Reaction: No - Integumentary Hx Dermatological Disorder: No - Musculoskeletal/Rheumatological Hx Musculoskeletal Disorders: Yes Hx Falls: Yes Hx Unsteady Gait: Yes - Gastrointestinal Hx Gastrointestinal Disorders: Yes (gi bleed) - Genitourinary/Gynecological Hx Genitourinary Disorders: No - Psychiatric Hx Psychophysiologic Disorder: No Hx Substance Use: No - Surgical History Hx Eye Surgery: Yes - Anesthesia Hx Anesthesia Reactions: No Family/Social History - Physician Review Nursing Documentation Reviewed: Yes Family/Social History: No Known Family HX Smoking Status: Light Smoker < 10 Cigarettes Daily Hx Alcohol Use: No Hx Substance Use: No Allergies/Home Meds Allergies/Adverse Reactions: Allergies No Known Allergies Allergy (Verified 08/17/17 15:29) Home Medications: Home Meds Medication Instructions Recorded Confirmed Vit C/E/Zn/Coppr/Lutein/Zeaxan 1 each PO BID 06/09/17 08/17/17 [Preservision Areds 2 Softgel] amLODIPine [Norvasc] 10 mg PO DAILY 06/09/17 08/17/17 Review of Systems - Review of Systems Constitutional: Fatigue Eyes: Normal ENT: Normal Respiratory: SOB Cardiovascular: Normal Gastrointestinal: Normal Genitourinary Female: Normal Musculoskeletal: Normal Skin: Normal Neurological: Normal Endocrine: Normal Hemo/Lymphatic: Normal Psychiatric: Normal Physical Exam Vital Signs Reviewed: Yes Vital Signs Temp Pulse Resp BP Pulse Ox 08/17/17 21:38 98.9 F 73 19 149/73 08/17/17 20:39 98.3 F 70 19 154/76 H 100 08/17/17 19:54 98.4 F 69 20 147/87 08/17/17 19:34 98.3 F 72 20 148/78 100 08/17/17 17:02 75 18 155/74 H 96 08/17/17 15:29 98.6 F 79 18 156/80 H 98 Temperature: Afebrile Blood Pressure: Hypertensive Pulse: Regular Respiratory Rate: Normal Appearance: Positive for: Well-Appearing, Non-Toxic, Comfortable Pain Distress: None Mental Status: Positive for: Alert and Oriented X 3 - Systems Exam Head: Present: Atraumatic, Normocephalic Pupils: Present: PERRL Extroacular Muscles: Present: EOMI Conjunctiva: Present: Normal Mouth: Present: Moist Mucous Membranes Neck: Present: Normal Range of Motion Respiratory/Chest: Present: Clear to Auscultation, Good Air Exchange. No: Respiratory Distress, Accessory Muscle Use Cardiovascular: Present: Regular Rate and Rhythm, Normal S1, S2. No: Murmurs Abdomen: No: Tenderness, Distention, Peritoneal Signs Back: Present: Normal Inspection Upper Extremity: Present: Normal Inspection. No: Cyanosis, Edema Lower Extremity: Present: Normal Inspection. No: Edema Neurological: Present: GCS=15, CN II-XII Intact, Speech Normal Skin: Present: Warm, Dry, Pale. No: Rashes Psychiatric: Present: Alert, Oriented x 3, Normal Insight, Normal Concentration Medical Decision Making ED Course and Treatment: 08/17/17 16:18 Fiorella Martínez is an 81 year old female with a past medical history of MDS and anemia, who presents to the emergency department sent in by Dr. Nelson complaining of fatigue and difficulty breathing for the past week or more. Plan Labs, UA, ECG CXR, O2 nc 2L T&S Contact PMD Dr Booth Progress Note significant Hb of 6.3; contacted Dr. Booth to admit and order blood products DW Dr. Nelson and was present to [facility] pt Dr. Booth was contacted to inform of admission Consult placed with Dr Nelson for tomorrow - Lab Interpretations Lab Results: 08/17/17 17:00 08/17/17 17:00 Lab Results 08/17/17 18:11: Urine Color Yellow, Urine Appearance Clear, Urine pH 6.5, Ur Specific [place] 1.010, Urine Protein Negative, Urine Glucose (UA) Negative, Urine Ketones Negative, Urine Blood Negative, Urine Nitrate Negative, Urine Bilirubin Negative, Urine Urobilinogen 0.2, Ur Leukocyte Esterase Negative 08/17/17 17:28: Blood Type A POSITIVE, Antibody Screen Negative, Crossmatch See Detail, BBK History Checked Patient has bt 08/17/17 17:00: Sodium 139, Chloride 104, Potassium 4.0, Carbon Dioxide 26, Anion Gap 13, BUN 24 H, Creatinine 0.7, Est GFR ( Amer) > 60, Est GFR ( Non-Af Amer) > 60, Random Glucose 87, Calcium 9.3, Total Bilirubin 0.6, AST 35, ALT 26, Alkaline Phosphatase 79, Lactate Dehydrogenase 658, Total Creatine Kinase 32 L, Troponin I < 0.01, Total Protein 7.0, Albumin 3.7, Globulin 3.3, Albumin/Globulin Ratio 1.1 08/17/17 17:00: pO2 118 H, VBG pH 7.41, VBG pCO2 46.0, VBG HCO3 29.2 H, VBG Total CO2 30.6 H, VBG O2 Sat (Calc) 100.2 H, VBG Base Excess 3.8 H, VBG Potassium 4.2, Sodium 139.0, Chloride 108.0 H, Glucose 94, Lactate 0.9, FiO2 21.0, Venous Blood Potassium 4.2 08/17/17 17:00: WBC 3.2 L, RBC 3.73, Hgb 6.3 L* D, Hct 22.0 L, MCV 59.0 L D, MCH 16.9 L, MCHC 28.6 L, RDW 24.3 H, Plt Count 215, Gran % 50.8, Lymph % (Auto) 41.4 H, [place] % (Auto) 2.2, Eos % (Auto) 5.0, Baso % (Auto) 0.6, Gran # 1.63, Lymph # (Auto) 1.3, [place] # (Auto) 0.1, Eos # (Auto) 0.2, Baso # (Auto) 0.02 08/17/17 17:00: PT 13.7 H, INR 1.20 H, APTT 31.0 - Medication Orders Current Medication Orders: Albuterol/Ipratropium (Duoneb 3 Mg/0.5 Mg (3 Ml) Ud) 3 ml IH [id number] [facility] Last Admin: 08/18/17 01:47 Dose: 3 ml Albuterol/Ipratropium (Duoneb 3 Mg/0.5 Mg (3 Ml) Ud) 3 ml IH Q2H PRN PRN Reason: Shortness of Breath Amlodipine Besylate (Norvasc) 10 mg PO DAILY KRISTOFER Furosemide (Lasix) 20 mg IVP PRN [facility] Last Admin: 08/18/17 01:37 Dose: 20 mg MAR Blood Pressure Document 08/18/17 01:37 [facility] (Rec: 08/18/17 01:37 [id number] Blood Pressure Blood Pressure (100/60-150/90) 141/66 IVP Administration Document 08/18/17 01:37 [facility] (Rec: 08/18/17 01:37 [id number] Charges for Administration # of IVP Administrations 1 Discontinued Medications Sodium Chloride (Sodium Chloride 0.9%) 1,000 mls @ 999 mls/hr IV .Q1H1M STA Stop: 08/17/17 17:27 Last Admin: 08/17/17 17:00 Dose: 999 mls/hr eMAR Start Stop Document 08/17/17 17:00 [facility] (Rec: 08/17/17 17:00 OCS [id number]) Intravenous Solution Start Date 08/17/17 Start Time 17:00 End Date 08/17/17 End time 18:01 Total Infusion Time 61 Disposition/Present on Arrival - Present on Arrival Any Indicators Present on Arrival: Yes History of DVT/PE: No History of Uncontrolled Diabetes: No Urinary Catheter: No History of Decub. Ulcer: No History Surgical Site Infection Following: None - Disposition Have Diagnosis and Disposition been Completed?: Yes Diagnosis: Anemia Disposition: HOSPITALIZED Disposition Time: 19:13 Patient Plan: Admission Patient Problems: Current Active Problems Problem Status Onset Anemia Acute Condition: STABLE
[2017-08-17] MEDS ORDERED: Sodium Chloride 0.9% 1,000 ML IV STA (16:27)
[2017-08-17 17:18] LABS: VENOUS BLOOD GAS BASE EXCESS 3.8 mmol/L (0.0-2.0); VENOUS BLOOD GAS PO2 118 mm/Hg (30-55); VENOUS BLOOD PH 7.41 (7.32-7.43)
[2017-08-17 17:22] LABS: BASO # 0.02 K/mm3 (0.0-2.0); BASO % 0.6 % (0.0-3.0); EOS # 0.2 (0.0-0.7); GRAN # 1.63 (1.4-6.5); GRAN % 50.8 % (50.0-68.0); LYMPH # 1.3 (1.2-3.4); LYMPH % 41.4 % (22.0-35.0); MEAN CORPUSCULAR HEMOGLOBIN 16.9 pg (25.0-35.0); MEAN CORPUSCULAR HGB CONC 28.6 g/dl (31.0-37.0); MONO # 0.1 (0.1-0.6); MONO % 2.2 % (1.0-6.0); PLATELET COUNT 215 10^3/uL (120.0-450.0); RBC 3.73 10^6/uL (3.5-6.1); RED CELL DISTRIBUTION WIDTH 24.3 % (11.5-14.5); WHITE BLOOD COUNT 3.2 10^3/ul (4.5-11.0)
[2017-08-17 17:23] LABS: HEMOGLOBIN 6.3 g/dL (12.0-16.0)
[2017-08-17 17:28] LABS: ALB/GLOB RATIO 1.1 (1.1-1.8); ALBUMIN 3.7 g/dL (3.0-4.8); ALT/SGPT 26 U/L (7-56); AST/SGOT 35 U/L (14-36); BLOOD UREA NITROGEN 24 mg/dL (7-21); CALCIUM 9.3 mg/dL (8.4-10.5); GFR AFRICAN-AMERICAN > 60; GFR NON-AFRICAN AMERICAN > 60
[2017-08-17 17:35] LABS: INR 1.2 (0.93-1.08); PROTHROMBIN TIME 13.7 SECONDS (9.4-12.5)
[2017-08-17 17:39] LABS: TROPONIN I < 0.01 ng/mL
[2017-08-17 18:25] LABS: PH,URINE 6.5 (4.7-8.0); URINE BILIRUBIN NEGATIVE (NEGATIVE); URINE BLOOD NEGATIVE (NEGATIVE); URINE GLUCOSE (UA) NEGATIVE (NEGATIVE); URINE LEUKOCYTE ESTERASE NEGATIVE Leu/uL (NEGATIVE); URINE PROTEIN NEGATIVE mg/dL (<30 mg/dL); URINE UROBILINOGEN 0.2 E.U./dL (<1 E.U./dL)
[2017-08-17 18:26] LABS: URINE APPEARANCE CLEAR (CLEAR); URINE COLOR YELLOW (YELLOW)
[2017-08-17] MEDS ORDERED: Albuterol-Ipratrop 3 mg / 0.5 (3 ml) UD IH PRN (19:40)
[2017-08-18] MEDS: Albuterol-Ipratrop 3 mg / 0.5 (3 ml) UD IH SCH ×3 (01:46→07:33)
--- NOTE | 2017-08-18 03:11 | HP ---
HISTORY OF PRESENT ILLNESS: Patient is 81 years old, who was seen by Dr. Nelson, who was found to have low hemoglobin of 6, so was referred to emergency room for blood transfusion. Patient was feeling very weak, tired and sleepy. She has shortness of breath going on for almost a week, got worse since yesterday. There is no complaint of any chest pain. No nausea, vomiting, or diarrhea. No hemoptysis. No hematemesis, no acute bleeding. PAST MEDICAL HISTORY: She has significant past medical history of: 1. Hypertension. 2. Hyperlipidemia. 3. History of thalassemia. 4. History of COPD. ALLERGIES: SHE IS NOT ALLERGIC TO ANY MEDICATIONS. SOCIAL HISTORY: She lives with her son, , and does actively smoke. She also has history of vague mesenteric mass and biopsy done was unremarkable. Patient did have bone marrow done in 05/2017. MEDICATION AT HOME: She is on amlodipine 10 mg daily. She takes multivitamin. PHYSICAL EXAMINATION: GENERAL: She is awake, alert, oriented, communicative, looks pale. VITAL SIGNS: She is afebrile. Pulse 72, respirations 20, blood pressure 148/78. LUNGS: Bilateral good airflow. No rhonchi or crackles. HEART: S1, S2 audible. ABDOMEN: Soft, nontender. No rebound. No guarding. NEUROLOGIC: Patient is awake, alert, oriented, able to communicate. EXTREMITIES: Bilateral legs, no edema. LABORATORY EXAMINATION: WBC 3.2, hemoglobin 6.3, hematocrit 22, platelets of . PT 13.7, INR 1.20, PTT 31. Chemistry: Sodium 139, potassium 4, chloride 104, CO2 26, BUN 24, creatinine 0.7, blood sugar of 87. LFTs are within normal limits. Troponin 0.01. Urinalysis is unremarkable. ASSESSMENT: 1. Symptomatic anemia. 2. Myelodysplastic syndrome. 3. History of chronic obstructive pulmonary disease. 4. Hypertension. PLAN: Patient will receive 2 blood transfusions. I will restart her on Norvasc and will follow up her CBC and CMP in a.m. Guido Booth MD [facility] # [id number]
[2017-08-18 07:23] LABS: BASO # 0.02 K/mm3 (0.0-2.0); BASO % 0.7 % (0.0-3.0); EOS # 0.1 (0.0-0.7); EOS % 4.9 % (1.5-5.0); GRAN # 1.49 (1.4-6.5); GRAN % 51.9 % (50.0-68.0); LYMPH % 35.9 % (22.0-35.0); MEAN CELL VOLUME 64.1 fl (80.0-105.0); MEAN CORPUSCULAR HEMOGLOBIN 19.3 pg (25.0-35.0); MONO # 0.2 (0.1-0.6); MONO % 6.6 % (1.0-6.0); PLATELET COUNT 195 10^3/uL (120.0-450.0); RBC 4.57 10^6/uL (3.5-6.1); RED CELL DISTRIBUTION WIDTH 28.7 % (11.5-14.5)
--- NOTE | 2017-08-18 07:32 | CARD ---
APPROVED REPORT EKG Measurement Heart [id number] <Conclusion> Normal sinus rhythm PRWP V 1 - 6
[2017-08-18 08:01] LABS: ALB/GLOB RATIO 1.2 (1.1-1.8); ALBUMIN 3.9 g/dL (3.0-4.8); ALT/SGPT 28 U/L (7-56); AST/SGOT 43 U/L (14-36); BLOOD UREA NITROGEN 13 mg/dL (7-21); CALCIUM 9.2 mg/dL (8.4-10.5); GFR AFRICAN-AMERICAN > 60; GFR NON-AFRICAN AMERICAN > 60
[2017-08-18 08:08] LABS: HEMOGLOBIN 8.8 g/dL (12.0-16.0); WHITE BLOOD COUNT 2.9 10^3/ul (4.5-11.0)
[2017-08-18 09:26] VITALS: BP 137/76; PULSE 73; RESP 20; TEMP 98.3; O2SAT 97
[2017-08-18 09:28] LABS: EOSINOPHIL 7 % (0.0-3.0); LYMPHOCYTE 50 % (22.0-35.0); MONOCYTE 4 % (1.0-6.0); NEUTROPHIL 39 % (50.0-70.0)
[2017-08-18 09:29] LABS: ANISOCYTOSIS 3+; HYPOCHROMIA 3+; LARGE PLATELETS PRESENT; MICROCYTOSIS 3+; NUCLEATED RED BLOOD CELL 3 %; OVALOCYTES 1+; POIKILOCYTOSIS 2+; POLYCHROMASIA 1+; SCHISTOCYTES SLIGHT; TARGET CELLS SLIGHT; TEAR DROP CELLS 2+
--- NOTE | 2017-08-18 23:49 | DS ---
HISTORY OF PRESENT ILLNESS: The patient is 81 years old, seen and examined, seems to be doing lot better. No nausea or vomiting. No diarrhea. She states she is not as weak or dizzy as before, feels better after blood transfusion. PHYSICAL EXAMINATION: VITAL SIGNS: She is afebrile, pulse 73, respirations 20, blood pressure 137/76. LUNGS: Bilateral good airflow. No rhonchi or crackle. HEART: S1, S2 audible. ABDOMEN: Soft, nontender. No rebound. No guarding. NEUROLOGIC: Patient is awake, alert, oriented, communicative. LABORATORY EXAM: WBC is 2.9, hemoglobin 8.8, hematocrit 29.3, platelet of 195. Chemistry: Sodium 141, potassium 3.8, chloride 104, CO2 of 30, BUN 13, creatinine 0.5, blood sugar of 95. ASSESSMENT: 1. Symptomatic anemia. 2. Probably myelodysplastic syndrome. 3. Hypertension. 4. Chronic obstructive pulmonary disease. PLAN: The patient is clinically stable. Her followup hemoglobin has improved. She will be discharged home today and she will follow up with Dr. Nelson. Guido Booth MD
--- NOTE | 2017-08-18 23:56 | CON ---
DATE: 08/18/2017 HISTORY OF PRESENT ILLNESS: Ms. Martínez is an 81-year-old female sent to the ER because of hemoglobin of 7 last week. She was feeling worse this week. She was complaining of feeling of passing out, but she did not pass out. Extreme fatigue. No shortness of breath. She is not able to perform her daily activities without being tired. No bleeding from any sites. She has myelodysplastic syndrome, currently on Vidaza. She also gets Procrit. Last Procrit was a week ago, units. PAST MEDICAL HISTORY: Beta thalassemia and myelodysplastic syndrome, hypertension, dizziness and history of syncope, history of blood transfusion, history of fall. PAST SURGICAL HISTORY: None. ALLERGIES: NO KNOWN DRUG ALLERGIES. FAMILY HISTORY: Noncontributory. PERSONAL HISTORY: Light smoker. No history of alcohol abuse. HOME MEDICATIONS: Amlodipine 10 mg daily. REVIEW OF SYSTEMS: As per HPI. Rest of 12-point review systems reviewed and negative. PHYSICAL EXAMINATION: GENERAL: Comfortable in bed, in no acute distress. VITAL SIGNS: Temperature 98.7, heart rate 80 per minute, respiratory 18 per minute, blood pressure 145/70, pulse ox is 80% on room air. HEENT: Pallor positive. NECK: No lymphadenopathy. CHEST: Air entry present and equal bilaterally. No added sound. CARDIOVASCULAR: S1 and S2 normal. No murmur. No gallop. ABDOMEN: Soft, nontender. No hepatosplenomegaly. EXTREMITIES: No edema. CENTRAL NERVOUS SYSTEM: Alert, oriented x3. No focal sensory or motor deficit. SPINE: Nontender. LABORATORY DATA: White count 3.2, hemoglobin 6.3, hematocrit 22, platelet 215. Sodium 139, potassium 4, BUN 24, creatinine 0.7, glucose 87. ASSESSMENT: 1. Symptomatic anemia. 2. Myelodysplastic syndrome. 3. Beta thalassemia trait. 4. Hypertension. 5. Fatigue. PLAN: Two units of blood transfusion. Ordered Lasix 40 mg IV after second unit of blood transfusion. We will do CBC after second unit an hour later. No history of bleeding. She has underlying myelodysplasia. She will need continuation of treatment. She can be discharged if stable after 2 units of blood transfusion. Hypertension, blood pressure controlled with current medications. No evidence of congestive cardiac failure. Nneka Nelson MD [facility] # [id number]
== END 2017-08-18 15:19 | disposition home or self-care (01) ==
LOC: ED 15:25 → INTOOBSV 18:57 → ERH 18:57 → 5RNO 21:47 → UNDODISIN 08-18 14:03
PROVIDERS: ADMIT Internal Medicine; ATTEND Internal Medicine
DX: D64.9 Anemia, unspecified (principal); D46.9 Myelodysplastic syndrome, unspecified; D56.1 Beta thalassemia; D56.3 Thalassemia minor; E78.5 Hyperlipidemia, unspecified; I10 Essential (primary) hypertension; H35.30 Unspecified macular degeneration; J44.9 Chronic obstructive pulmonary disease, unspecified; F17.200 Nicotine dependence, unspecified, uncomplicated; R40.2412 Glasgow coma scale score 13-15, at arrival to emergency department; Z91.81 History of falling
CPT/HCPCS: 36415; 36430; 80053; 81003; 82550; 82803; 83615; 84484; 85025; 85610; 85730; 86850; 86900; 86920; 87040; 93005; 94640; 96360; 99284; G0378; J1940; J7040; P9016